=== PATIENT | female | born 1935 | race Caucasian/White ===

== ENCOUNTER → 2016-03-05 | Outpatient (CLI) | payer MEDICARE ==
[~2016-03-05] MED LIST: LVT.05T PO; PANT20TA2 PO; PRAV20TA PO; SCR1T1 PO
--- OUTSIDE RECORDS SUMMARY | 2016-03-05 10:30 | XMS REPORT | Continuity of Care Document ---
Author Author [facility] Organization [facility] Address Unknown Phone Unavailable Care Team Providers Care Customer Complaint Clerk Name Role Phone PRINCESS CARSON MD PCP Insurance Providers Payer Name Policy Number Subscriber Name Relationship Wps Medicare [id number] Jamee Osorio 18 Self / Same As Patient Blue [employer] [facility] Supp [id number] Jamee Osorio 18 Self / Same As Patient Advance Directives Directive Response Recorded Date/Time Advance Directives No 11/02/13 8:39am Health Care Power of Change Over No 11/02/13 8:39am Organ Donor No 11/02/13 8:39am Resuscitation Status Full Code 11/02/13 8:39am Problems No known problems or medical conditions. Medications Medication Dose Route Sig Days/Qty Instructions Order Date Discontinued Date Status Pravastatin Sodium 20 Mg PO DAILY 11/02/13 Active Levothyroxine Sodium (Levothroid) 1 Each PO DAILY 11/02/13 Active Pantoprazole Sodium 40 Mg PO DAILY 90 Qty 11/02/13 Active Sucralfate 1 Gm PO FOUR TIMES DAILY 14 Days 11/02/13 Active Social History Social History Problem Response Recorded Date/Time Smoking Status Never a Smoker 11/02/2013 8:47am Do you dip or chew tobacco? No 11/02/2013 8:47am Query Response Start Date Stop Date Smoking Status Never a Smoker Hospital Discharge Instructions No hospital discharge instructions. Plan of Care No plan of care. Functional Status No functional status results. Allergies, Adverse Reactions, Alerts Allergen Type Severity Reaction Status Last Updated No Known Drug Allergies Active 11/02/13 Immunizations No immunization records. Vital Signs Acute Vital Signs Vital Response Date/Time Temperature (Fahrenheit) 97.2 degrees F (97.6 - 99.5) Temperature (Calculated Celsius) 36.40805 degrees C (36.4 - 37.5) Temperature Source Tympanic Pulse Rate (adult) 66 bpm (60 - 90) Respiratory Rate 18 bpm (12 - 24) O2 Sat by Pulse Oximetry 98 % (88 - 100) Blood Pressure 187/82 mm Hg Pain Pain Intensity 0 Height (Feet) 5 feet Height (Inches) 2.00 inches Height (Calculated Centimeters) 157.461371 cm Weight (Pounds) 130 pounds Weight (Calculated Grams) 46779.009 gm Weight (Calculated Kilograms) 58.642777 kilograms Calculated BMI 23.77 Results No known relevant diagnostic tests, laboratory data and/or discharge summary. Procedures Procedure Status Date Provider(s) Esophagogastroduodenoscopy (EGD) with dilation completed 11/02/13 TONYA MOHAN MD Encounters Encounter Location Date/Time Registered Clinic [facility] 10/28/13 2:29pm
--- NOTE | 2016-03-05 11:44 | Diagnostic Imaging Report ---
PROCEDURE: MR imaging of the brain without contrast. TECHNIQUE: Multiplanar, multisequence MR imaging of the brain was performed without contrast. INDICATION: Memory loss. FINDINGS: There are no prior studies available for comparison. There is no mass, shift of the midline, or hemorrhage to suggest an acute intracranial abnormality. There is no abnormal signal arising from the brain on the diffusion series to indicate an area of acute ischemia either. The ventricles are not abnormally dilated. The FLAIR series does show focal and diffuse areas of increased signal in the periventricular white matter bilaterally. These findings are nonspecific but may be secondary to encephalomalacia from microvascular ischemia. There is cortical atrophy present. The degree of atrophy is consistent with the patient's age. The sella is not enlarged and the expected carotid flow voids are evident bilaterally. The orbits are symmetrical and within normal limits. The sinuses are generally clear. The seventh and eighth nerve complexes are unremarkable. IMPRESSION: 1. There is no evidence for an acute intracranial abnormality. There is no sign of a mass lesion either. 2. There are senescent changes including cortical atrophy and periventricular encephalomalacia. Dictated by: Dictated on workstation # [id number]
== END ==
LOC: RAD 10:27
PROVIDERS: ATTEND Nurse Practitioner Family
DX: R41.3 Other amnesia (principal)
CPT/HCPCS: 70551

== ENCOUNTER 2018-10-09 15:25 | Emergency (ER) | payer MEDICARE ==
[~2018-10-09] VITALS: Ht 162.6 cm; Wt 70.3 kg
[2018-10-09] MEDS ORDERED: ONDANSETRON 4 MG/2 ML (SDV) Z0FRAN IVP ONE (15:45)
--- NOTE | 2018-10-09 15:45 | ED General ---
General Chief Complaint: General Problems/Pain Stated Complaint: CHILLS,NAUSEA Source of Information: Patient Exam Limitations: No Limitations History of Present Illness Date Seen by Provider: Oct 09, 2018 Time Seen by Provider: 15:42 Initial Comments 83-year-old female who lives at home alone with family very close by comes in with reports of nausea and chills. The nausea has been ongoing for about the past week since starting Lexapro. Her dose of Aricept has been changed recently as well. The Lexapro has been held for the past 3 days due to the nausea that family suspected it was causing. Timing/Duration: 1 Week, Intermittent Severity: Moderate Associated Systoms: Nausea/Vomiting Allergies and Home Medications Allergies Coded Allergies: No Known Drug Allergies (Unverified , 11/02/13) Home Medications Levothyroxine Sodium 50 Mcg Tablet, 1 EACH PO DAILY, (Reported) Pantoprazole Sodium 20 Mg Tablet.dr, 40 MG PO DAILY Prescribed by: TONYA MOHAN on 11/02/13 1056 Pravastatin Sodium 20 Mg Tablet, 20 MG PO DAILY, (Reported) Sucralfate 1 Gm Tab, 1 GM PO QID Prescribed by: TONYA MOHAN on 11/02/13 1056 Patient Home Medication List Home Medication List Reviewed: Yes Review of Systems Review of Systems Constitutional: see HPI EENTM: see HPI Respiratory: no symptoms reported Cardiovascular: no symptoms reported Gastrointestinal: No abdominal pain; nausea Genitourinary: no symptoms reported Musculoskeletal: no symptoms reported Skin: no symptoms reported Psychiatric/Neurological: No Symptoms Reported Past Zudbvtn-Ugheky-Yiiknp Hx Patient Social History Alcohol Use: Denies Use Recreational Drug Use: No Smoking Status: Never a Smoker Recent Foreign Travel: No Contact w/Someone Who Travel: No Recent Hopitalizations: No Physical Abuse: No Sexual Abuse: No Mistreated: No Fear: No Past Medical History Surgeries: Yes Respiratory: No Cardiac: No Neurological: No Gastrointestinal: No Musculoskeletal: No Endocrine: Yes Physical Exam Vital Signs Vital Signs - First Documented 10/09/18 15:35 Temp 95.2 Pulse 67 Resp 20 B/P (MAP) 188/97 (127) Pulse Ox 98 O2 Delivery Room Air Capillary Refill : Height, Weight, BMI Height: 5'2.00" Weight: 130lbs. oz. 58.030783sw; BMI Method: General Appearance: No Apparent Distress, WD/WN, Other (alert and pleasant but disoriented -->her baseline) Eyes: Bilateral Eye Normal Inspection, Bilateral Eye PERRL, Bilateral Eye EOMI HEENT: PERRL/EOMI Neck: Full Range of Motion, Normal Inspection Respiratory: Normal Breath Sounds, No Accessory Muscle Use, No Respiratory Distress Cardiovascular: Regular Rate, Rhythm, Normal Peripheral Pulses Gastrointestinal: Non Tender, Soft Extremity: Normal Capillary Refill, Normal Inspection Neurologic/Psychiatric: Alert, Oriented x3 Skin: Normal Color, Warm/Dry Progress/Results/Core Measures Suspected Sepsis SIRS Temperature: Pulse: Respiratory Rate: Laboratory Tests 10/09/18 15:57: White Blood Count 9.6 Blood Pressure / Mean: Laboratory Tests 10/09/18 15:57: Creatinine 1.28, Platelet Count 420H, Total Bilirubin 0.5 Results/Orders Lab Results Laboratory Tests Test 10/09/18 15:51 10/09/18 15:57 Range/Units Urine Color YELLOW Urine Clarity CLEAR Urine pH 5 5-9 Urine Specific [place] 1.020 1.016-1.022 Urine Protein 3+ H NEGATIVE Urine Glucose (UA) NEGATIVE NEGATIVE Urine Ketones 2+ H NEGATIVE Urine Nitrite NEGATIVE NEGATIVE Urine Bilirubin NEGATIVE NEGATIVE Urine Urobilinogen NORMAL NORMAL MG/DL Urine Leukocyte Esterase NEGATIVE NEGATIVE Urine RBC (Auto) 2+ H NEGATIVE Urine RBC NONE /HPF Urine WBC RARE /HPF Urine Squamous Epithelial Cells 5-10 /HPF Urine Crystals NONE /LPF Urine Bacteria NEGATIVE /HPF Urine Casts PRESENT /LPF Urine Hyaline Casts 2-5 H /LPF Urine Mucus SMALL H /LPF Urine Culture Indicated NO White Blood Count 9.6 4.3-11.0 10^3/uL Red Blood Count 4.60 4.35-5.85 10^6/uL Hemoglobin 12.4 11.5-16.0 G/DL Hematocrit 38 35-52 % Mean Corpuscular Volume 82 80-99 FL Mean Corpuscular Hemoglobin 27 25-34 PG Mean Corpuscular Hemoglobin Concent 33 32-36 G/DL Red Cell Distribution Width 14.6 H 10.0-14.5 % Platelet Count 420 H 130-400 10^3/uL Mean Platelet Volume 9.8 7.4-10.4 FL Neutrophils (%) (Auto) 74 42-75 % Lymphocytes (%) (Auto) 15 12-44 % Monocytes (%) (Auto) 10 0-12 % Eosinophils (%) (Auto) 1 0-10 % Basophils (%) (Auto) 0 0-10 % Neutrophils # (Auto) 7.1 1.8-7.8 X 10^3 Lymphocytes # (Auto) 1.5 1.0-4.0 X 10^3 Monocytes # (Auto) 0.9 0.0-1.0 X 10^3 Eosinophils # (Auto) 0.1 0.0-0.3 10^3/uL Basophils # (Auto) 0.0 0.0-0.1 10^3/uL Sodium Level 135 135-145 MMOL/L Potassium Level 3.1 L 3.6-5.0 MMOL/L Chloride Level 98 98-107 MMOL/L Carbon Dioxide Level 23 21-32 MMOL/L Anion Gap 14 5-14 MMOL/L Blood Urea Nitrogen 20 H 7-18 MG/DL Creatinine 1.28 0.60-1.30 MG/DL Estimat Glomerular Filtration Rate 40 BUN/Creatinine Ratio 16 Glucose Level 129 H 70-105 MG/DL Calcium Level 9.0 8.5-10.1 MG/DL Corrected Calcium 8.9 8.5-10.1 MG/DL Total Bilirubin 0.5 0.1-1.0 MG/DL Aspartate Amino Transf (AST/SGOT) 16 5-34 U/L Alanine Aminotransferase (ALT/SGPT) 10 0-55 U/L Alkaline Phosphatase 56 40-136 U/L Total Protein 7.0 6.4-8.2 GM/DL Albumin 4.1 3.2-4.5 GM/DL My Orders Orders - DIANNA IGLESIAS APRN Cbc With Automated Diff (10/09/18 15:41) Comprehensive Metabolic Panel (10/09/18 15:41) Ua Culture If Indicated (10/09/18 15:41) Ed Iv/Invasive Line Start (10/09/18 15:41) Ondansetron Injection (Zofran Injectio (10/09/18 15:45) Medications Given in ED Current Medications Medications Dose Ordered Sig/Teja Route Start Time Stop Time Status Last Admin Dose Admin Ondansetron HCl 4 mg ONCE ONCE IVP 10/09/18 15:45 10/09/18 15:46 DC 10/09/18 15:59 4 MG Vital Signs/I&O 10/09/18 15:35 Temp 95.2 Pulse 67 Resp 20 B/P (MAP) 188/97 (127) Pulse Ox 98 O2 Delivery Room Air Capillary Refill : Departure Impression Primary Impression: Nausea Disposition: 01 HOME, SELF-CARE Condition: Stable Departure-Patient Inst. Decision time for Depature: 16:35 Referrals: PRINCESS CARSON MD (PCP/Family) Primary Care Physician Patient Instructions: Nausea and Vomiting, Adult Add. Discharge Instructions: 1. Her urinalysis shows no sign of infection, labs are otherwise unremarkable except for some slightly low potassium. Suspect that her nausea is from the Aricept. All discharge instructions reviewed with patient and/or family. Voiced understanding. Scripts Ondansetron (Ondansetron Odt) 8 Mg Tab.rapdis 8 MG PO Q8H PRN for NAUSEA/VOMITING, #14 TAB Prov: DIANNA IGLESIAS APRN 10/09/18 DIANNA IGLESIAS APRN Oct 09, 2018 15:45
[2018-10-09 15:57] LABS: BILIRUBIN,URINE NEGATIVE (NEGATIVE); CLARITY,URINE CLEAR; COLOR,URINE YELLOW; GLUCOSE, URINE (UA) NEGATIVE (NEGATIVE); KETONES,URINE 2+ (NEGATIVE); LEUKOCYTE ESTERASE ,URINE NEGATIVE (NEGATIVE); NITRITE,URINE NEGATIVE (NEGATIVE); PH,URINE 5 (5-9); PROTEIN,URINE 3+ (NEGATIVE); UROBILINOGEN,URINE NORMAL (NORMAL)
[2018-10-09 16:06] LABS: BACTERIA,URINE NEGATIVE /HPF; WBC,URINE RARE /HPF
[2018-10-09 16:09] LABS: BASOPHILS % (AUTO) 0 % (0-10); EOSINOPHILS # (AUTO) 0.1 10^3/uL (0.0-0.3); EOSINOPHILS % (AUTO) 1 % (0-10); HEMATOCRIT 38 % (35-52); HEMOGLOBIN 12.4 G/DL (11.5-16.0); LYMPHOCYTES # (AUTO) 1.5 X 10^3 (1.0-4.0); LYMPHOCYTES % (AUTO) 15 % (12-44); MEAN CORPUSCULAR HEMOGLOBIN 27 PG (25-34); MEAN CORPUSCULAR HGB CONC 33 G/DL (32-36); MEAN CORPUSCULAR VOLUME 82 FL (80-99); MEAN PLATELET VOLUME 9.8 FL (7.4-10.4); MONOCYTES # (AUTO) 0.9 X 10^3 (0.0-1.0); MONOCYTES % (AUTO) 10 % (0-12); NEUTROPHILS # (AUTO) 7.1 X 10^3 (1.8-7.8); NEUTROPHILS % (AUTO) 74 % (42-75); PLATELET COUNT 420 10^3/uL (130-400); RED CELL DISTRIBUTION WIDTH 14.6 % (10.0-14.5); WHITE BLOOD COUNT 9.6 10^3/uL (4.3-11.0)
[2018-10-09 16:24] LABS: ALBUMIN 4.1 GM/DL (3.2-4.5); BILIRUBIN,TOTAL 0.5 MG/DL (0.1-1.0); CREATININE SERUM 1.28 MG/DL (0.60-1.30); POTASSIUM 3.1 MMOL/L (3.6-5.0)
[2018-10-09] MEDS ORDERED: ONDA8TAB13 PO (16:37)
[2018-10-09] MEDS ORDERED: KCL 10 MEQ TAB (MICRO K) PO ONE (16:45)
[2018-10-09 16:53] VITALS: BP 183/78
== END 2018-10-09 16:53 | disposition home or self-care (01) ==
LOC: EDUNIT# 15:25 → ER 15:27
DX: R11.0 Nausea (principal)
CPT/HCPCS: 36415; 80053; 81000; 85025

== ENCOUNTER 2018-12-31 15:33 | Outpatient (RCR) | payer MEDICARE ==
[~2018-12-31 15:33] MED LIST changes: +ONDA8TAB13 PO
== END 2019-03-31 | disposition home or self-care (01) ==
LOC: LAB 15:33
PROVIDERS: ATTEND Family Medicine
DX: R19.7 Diarrhea, unspecified (principal)
CPT/HCPCS: 87324; 87449

== ENCOUNTER → 2019-07-20 | Outpatient (CLI) | payer MEDICARE ==
[~2019-07-20] MED LIST changes: +HOLD METFORMIN - RECEIVED CONTRAST 20 ML VIAL IV SCH; +IOHEXOL 350 MG/ML 100 ML (OMNIPAQUE 350) VIAL IV ONE; +NS 100 ML (IVPB) BAG IV ONE
--- NOTE | 2019-07-20 09:48 | Diagnostic Imaging Report ---
PROCEDURE: CT abdomen and pelvis with and without contrast. TECHNIQUE: Precontrast acquisitions were acquired through the abdomen and pelvis. Multiple contiguous axial images were obtained through the abdomen and pelvis after the administration of intravenous contrast. Auto Exposure Controls were utilized during the CT exam to meet ALARA standards for radiation dose reduction. INDICATION: Diarrhea for 2 months. No prior studies are available for comparison. Lung bases are clear. No discrete liver mass is detected. There appear to be small stones within the gallbladder. No biliary ductal dilatation is seen. The pancreas and spleen are unremarkable. No adrenal mass is detected. There is a cyst extending exophytically and laterally from the right kidney measuring 5.2 cm. Left kidney is unremarkable. There is no hydronephrosis. Aorta is calcified but not aneurysmal. No central retroperitoneal or mesenteric lymphadenopathy is detected. The small and large bowel loops are normal caliber. There is no obstruction. There is diverticulosis of the sigmoid but no evidence of diverticulitis. No definite bowel wall thickening or mass is detected. There is a very small fat-containing umbilical hernia. Uterus and bladder are unremarkable. There is no free fluid or fluid collection. No pelvic lymphadenopathy is seen. IMPRESSION: 1. Cholelithiasis. 2. Right renal cyst. 3. Uncomplicated diverticulosis. 4. No acute feature is identified. Dictated by: Dictated on workstation # [id number]
== END ==
LOC: RAD 08:07
PROVIDERS: ATTEND Family Medicine
DX: K57.30 Diverticulosis of large intestine without perforation or abscess without bleeding (principal); K80.20 Calculus of gallbladder without cholecystitis without obstruction; N28.1 Cyst of kidney, acquired; R19.7 Diarrhea, unspecified
CPT/HCPCS: 74178

== ENCOUNTER 2020-08-11 13:25 | Inpatient (IN) | payer MEDICARE ==
[~2020-08-11] VITALS: Ht 170 cm; Wt 68.8 kg
[~2020-08-11 13:25] MED LIST changes: -HOLD METFORMIN - RECEIVED CONTRAST 20 ML VIAL IV SCH; -IOHEXOL 350 MG/ML 100 ML (OMNIPAQUE 350) VIAL IV ONE; -NS 100 ML (IVPB) BAG IV ONE
[2020-08-11 14:00] LABS: BASOPHILS % (AUTO) 0 % (0-10); EOSINOPHILS % (AUTO) 0 % (0-10); HEMATOCRIT 40 % (35-52); HEMOGLOBIN 12.8 g/dL (11.5-16.0); LYMPHOCYTES # (AUTO) 0.1 10^3/uL (1.0-4.0); LYMPHOCYTES % (AUTO) 1 % (12-44); MEAN CORPUSCULAR HEMOGLOBIN 28 pg (25-34); MEAN CORPUSCULAR HGB CONC 32 g/dL (32-36); MEAN CORPUSCULAR VOLUME 87 fL (80-99); MONOCYTES # (AUTO) 0.8 10^3/uL (0.0-1.0); MONOCYTES % (AUTO) 4 % (0-12); NEUTROPHILS # (AUTO) 17.8 10^3/uL (1.8-7.8); NEUTROPHILS % (AUTO) 94 % (42-75); PLATELET COUNT 350 10^3/uL (130-400); WHITE BLOOD COUNT 18.8 10^3/uL (4.3-11.0)
--- NOTE | 2020-08-11 14:05 | ED General ---
General Chief Complaint: General Problems/Pain Stated Complaint: SHAKY/NOT WANTING TO EAT/DIZZY Source of Information: Patient, Family Exam Limitations: Other (dementia) (DIANNA IGLESIAS APRN) History of Present Illness Date Seen by Provider: Aug 11, 2020 Time Seen by Provider: 13:40 Initial Comments To ER by daughter with general weakness, shaking more than usual, nausea poor intake for the past few days. Patient is severely demented Timing/Duration: 3-4 Days Severity: Moderate Associated Systoms: Nausea/Vomiting (DIANNA IGLESIAS APRN) Allergies and Home Medications Allergies Coded Allergies: No Known Drug Allergies (Unverified , 11/02/13) Home Medications Levothyroxine Sodium 50 Mcg Tablet, 1 EACH PO DAILY, (Reported) Ondansetron 8 Mg Tab.rapdis, 8 MG PO Q8H PRN for NAUSEA/VOMITING Prescribed by: DIANNA IGLESIAS on 10/09/18 1637 Pantoprazole Sodium 20 Mg Tablet.dr, 40 MG PO DAILY Prescribed by: TONYA MOHAN on 11/02/13 1056 Pravastatin Sodium 20 Mg Tablet, 20 MG PO DAILY, (Reported) Sucralfate 1 Gm Tab, 1 GM PO QID Prescribed by: TONYA MOHAN on 11/02/13 1056 Patient Home Medication List Home Medication List Reviewed: Yes (DIANNA IGLESIAS APRN) Review of Systems Review of Systems Constitutional: see HPI EENTM: see HPI Respiratory: see HPI Cardiovascular: no symptoms reported Genitourinary: no symptoms reported Musculoskeletal: no symptoms reported Skin: no symptoms reported Psychiatric/Neurological: No Symptoms Reported Hematologic/Lymphatic: No Symptoms Reported (DIANNA IGLESIAS APRN) Past Jeyqwbj-Ojpzik-Zlqdil Hx Patient Social History Tobacco Use?: No Substance use?: No Pt feels they are or have been: No (DIANNA IGLESIAS APRN) Past Medical History Surgeries: Yes Respiratory: No Cardiac: No Neurological: No Gastrointestinal: No Musculoskeletal: No Endocrine: Yes (DIANNA IGLESIAS APRN) Physical Exam Vital Signs Vital Signs - First Documented 08/11/20 13:50 Temp 36.4 Pulse 85 Resp 18 B/P (MAP) 157/68 (97) Pulse Ox 97 O2 Delivery Room Air (ALIE PEGUERO MD) Vital Signs Capillary Refill : (DIANNA IGLESIAS APRN) Height, Weight, BMI Height: 5'4.00" Weight: 155lbs. oz. 70.511623ot; BMI Method:Estimated General Appearance: No Apparent Distress, WD/WN Eyes: Bilateral Eye Normal Inspection, Bilateral Eye PERRL, Bilateral Eye EOMI Neck: Full Range of Motion, Normal Inspection Respiratory: No Accessory Muscle Use, No Respiratory Distress Cardiovascular: Regular Rate, Rhythm, Normal Peripheral Pulses Gastrointestinal: Normal Bowel Sounds, Non Tender, Soft Neurologic/Psychiatric: Alert, Other (Pleasant, alert, quite obviously demented.) Skin: Normal Color, Warm/Dry (DIANNA IGLESIAS APRN) Focused Exam Lactic Acid Level Laboratory Tests Test 08/11/20 15:44 Lactic Acid Level 4.28 MMOL/L (0.50-2.00) *H (ALIE PEGUERO MD) Progress/Results/Core Measures Suspected Sepsis SIRS Temperature: Pulse: Respiratory Rate: Laboratory Tests 08/11/20 13:51: White Blood Count 18.8H Blood Pressure / Mean: 08/11/20 15:44: Lactic Acid Level 4.28*H Laboratory Tests 08/11/20 13:51: Creatinine 1.35H, Platelet Count 350, Total Bilirubin 2.7H (DIANNA IGLESIAS APRN) Results/Orders Lab Results Laboratory Tests Test 08/11/20 13:51 08/11/20 15:21 08/11/20 15:44 Range/Units White Blood Count 18.8 H 4.3-11.0 10^3/uL Red Blood Count 4.56 3.80-5.11 10^6/uL Hemoglobin 12.8 11.5-16.0 g/dL Hematocrit 40 35-52 % Mean Corpuscular Volume 87 80-99 fL Mean Corpuscular Hemoglobin 28 25-34 pg Mean Corpuscular Hemoglobin Concent 32 32-36 g/dL Red Cell Distribution Width 14.4 10.0-14.5 % Platelet Count 350 130-400 10^3/uL Mean Platelet Volume 10.0 9.0-12.2 fL Immature Granulocyte % (Auto) 0 % Neutrophils (%) (Auto) 94 H 42-75 % Lymphocytes (%) (Auto) 1 L 12-44 % Monocytes (%) (Auto) 4 0-12 % Eosinophils (%) (Auto) 0 0-10 % Basophils (%) (Auto) 0 0-10 % Neutrophils # (Auto) 17.8 H 1.8-7.8 10^3/uL Lymphocytes # (Auto) 0.1 L 1.0-4.0 10^3/uL Monocytes # (Auto) 0.8 0.0-1.0 10^3/uL Eosinophils # (Auto) 0.0 0.0-0.3 10^3/uL Basophils # (Auto) 0.0 0.0-0.1 10^3/uL Immature Granulocyte # (Auto) 0.1 0.0-0.1 10^3/uL Neutrophils % (Manual) 94 % Lymphocytes % (Manual) 1 % Monocytes % (Manual) 5 % Hypersegmented Neutrophils MODERATE Sodium Level 139 135-145 MMOL/L Potassium Level 3.8 3.6-5.0 MMOL/L Chloride Level 103 98-107 MMOL/L Carbon Dioxide Level 21 21-32 MMOL/L Anion Gap 15 H 5-14 MMOL/L Blood Urea Nitrogen 11 7-18 MG/DL Creatinine 1.35 H 0.60-1.30 MG/DL Estimat Glomerular Filtration Rate 37 BUN/Creatinine Ratio 8 Glucose Level 207 H 70-105 MG/DL Calcium Level 8.8 8.5-10.1 MG/DL Corrected Calcium 8.9 8.5-10.1 MG/DL Magnesium Level 1.9 1.6-2.4 MG/DL Total Bilirubin 2.7 H 0.1-1.0 MG/DL Aspartate Amino Transf (AST/SGOT) 193 H 5-34 U/L Alanine Aminotransferase (ALT/SGPT) 139 H 0-55 U/L Alkaline Phosphatase 76 40-136 U/L Troponin I < 0.028 <0.028 NG/ML B-Type Natriuretic Peptide 251.3 H <100.0 PG/ML Total Protein 6.8 6.4-8.2 GM/DL Albumin 3.9 3.2-4.5 GM/DL Lipase 57 8-78 U/L Thyroid Stimulating Hormone (TSH) 0.78 0.35-4.94 UIU/ML Free Thyroxine 1.37 0.70-1.48 NG/DL Urine Color YELLOW Urine Clarity CLEAR Urine pH 7.0 5-9 Urine Specific [place] 1.015 L 1.016-1.022 Urine Protein TRACE H NEGATIVE Urine Glucose (UA) NEGATIVE NEGATIVE Urine Ketones NEGATIVE NEGATIVE Urine Nitrite NEGATIVE NEGATIVE Urine Bilirubin NEGATIVE NEGATIVE Urine Urobilinogen 4.0 < = 1.0 MG/DL Urine Leukocyte Esterase NEGATIVE NEGATIVE Urine RBC (Auto) TRACE-I NEGATIVE Urine RBC NONE /HPF Urine WBC 2-5 /HPF Urine Squamous Epithelial Cells RARE /HPF Urine Crystals NONE /LPF Urine Bacteria FEW H /HPF Urine Casts NONE /LPF Urine Mucus NEGATIVE /LPF Urine Culture Indicated NO Lactic Acid Level 4.28 *H 0.50-2.00 MMOL/L (ALIE PEGUERO MD) Vital Signs/I&O 08/11/20 08/11/20 08/11/20 13:50 13:54 16:21 Temp 36.4 36.4 36.4 Pulse 85 85 85 Resp 18 18 18 B/P (MAP) 157/68 (97) 157/68 (97) 125/76 Pulse Ox 97 97 97 O2 Delivery Room Air 08/12/20 00:00 Intake Total 1000 ml Balance 1000 ml (ALIE PEGUERO MD) Vital Signs/I&O Capillary Refill : (DIANNA IGLESIAS APRN) ECG Initial ECG Impression Date: Aug 11, 2020 Initial ECG Impression Time: 15:26 Initial ECG Rate: 74 Initial ECG Rhythm: Normal Sinus Initial ECG Intervals: Normal (DIANNA IGLESIAS APRN) Diagnostic Imaging Diagonstic Imaging: Xray Plain Films/CT/US/NM/MRI: chest Comments NAME: [facility] REC#: [id number] PT STATUS: REG ER : 1935 PHYSICIAN: DIANNA IGLESIAS APRN ADMIT DATE: 08/11/20/ER Draft Date of Exam:08/11/20 CHEST 1 VIEW, AP/PA ONLY INDICATION: Weakness. EXAMINATION: Portable erect AP chest at 2:58 p.m. COMPARISON: There are no prior studies available for comparison. FINDINGS: This exam is less than optimal as the study was taken in shallow inspiration. Allowing for this technical factor the heart size is at the upper limits of normal. The lungs are generally clear with there may be a very small amount of atelectasis/infiltrate in each lung base. There is no evidence for overt failure or for confluent pneumonia. The mediastinum is not widened. The osseous structures are intact. IMPRESSION: 1. There is a question of mild bibasilar atelectasis/infiltrate. Clinical follow-up is recommended. 2. There is no acute cardiopulmonary abnormality noted otherwise. Dictated on workstation # [id number] Dict: 08/11/20 1510 Trans: 08/11/20 1514 PJE [id number] Interpreted by: ALMITA DICKERSON MD Electronically signed by: NAME: [facility] REC#: [id number] PT STATUS: REG ER : 1935 PHYSICIAN: DIANNA IGLESIAS APRN ADMIT DATE: 08/11/20/ER Draft Date of Exam:08/11/20 CT ABDOMEN/PELVIS WO Procedure: CT abdomen and pelvis without contrast. Technique: Multiple contiguous axial images were obtained through the abdomen and pelvis without the use of intravenous contrast. Auto Exposure Controls were utilized during the CT exam to meet ALARA standards for radiation dose reduction. Indication: Abdominal pain with nausea and leukocytosis, abnormal liver function test. Comparison: 07/20/2019. Discussion: Atelectasis noted within the lung bases. Normal heart size. No pleural or pericardial fluid. The gallbladder is distended and contains small stones. The liver, pancreas, stomach, spleen and adrenal glands are unremarkable. Small hiatal hernia is stable. Prominent cyst along the right kidney is stable. No renal stone or hydronephrosis. Aorta is normal in caliber. Small fat-containing periumbilical hernia is again noted. No evidence for appendicitis. Diverticulosis with no secondary evidence for diverticulitis. Urinary bladder is unremarkable, as is the uterus. The aorta is normal in caliber. No ascites or adenopathy. No acute osseous abnormality. Degenerative disease noted throughout the spine. Impression: 1. Cholelithiasis with mild gallbladder distention. 2. Small hiatal hernia. 3. Diverticulosis. Dictated on workstation # [id number] Dict: 08/11/20 1513 Trans: 08/11/20 1536 PJE [id number] Interpreted by: CRISSY MORRISON MD Electronically signed by: (DIANNA IGLESIAS APRN) Departure Communication (Admissions) [id number]-[id number] with Dr. Manuel who has been here to see the patient. Offered surgery versus conservative management with antibiotics. Patient's daughter at the bedside would prefer the more conservative route. As such we will admit to hospitalist service for IV antibiotics. 2 L fluid bolus done, IV antibiotics ordered, blood cultures obtained, capillary refill is brisk, skin color is nor mal. Blood pressure 125/55 heart rate 77. Patient's daughter believes her to be a DO NOT RESUSCITATE status but states that her sister, the patient's other daughter, has that paperwork so she will try to obtain that. I spoke with Dr. John who is on-call for Dr. Carson, we will admit. (DIANNA ILGESIAS APRN) Impression Primary Impression: Cholecystitis Disposition: ADMITTED INPATIENT Condition: Stable Admissions Decision to Admit Reason: Admit from ER (General) Decision to Admit/Date: Aug 11, 2020 Time/Decision to Admit Time: 16:54 (DIANNA IGLESIAS APRN) Departure-Patient Inst. Referrals: PRINCESS CARSON MD (PCP) Primary Care Physician ATTENDING PHYSICIAN NOTE: I was physically present as attending physician in the emergency department during the care of this patient, but I was not directly involved in the decision making or delivery of care for this patient. (ALIE PEGUERO MD) DIANNA IGLESIAS APRN Aug 11, 2020 14:05 ALIE PEGUERO MD Aug 12, 2020 06:32
[2020-08-11 14:11] LABS: ALBUMIN 3.9 GM/DL (3.2-4.5); CHLORIDE 103 MMOL/L (98-107); POTASSIUM 3.8 MMOL/L (3.6-5.0); SODIUM 139 MMOL/L (135-145)
[2020-08-11 14:13] LABS: CALCIUM 8.8 MG/DL (8.5-10.1)
[2020-08-11 14:14] LABS: GLUCOSE 207 MG/DL (70-105); TOTAL PROTEIN 6.8 GM/DL (6.4-8.2)
[2020-08-11 14:15] LABS: CARBON DIOXIDE 21 MMOL/L (21-32)
[2020-08-11 14:16] LABS: BILIRUBIN,TOTAL 2.7 MG/DL (0.1-1.0)
[2020-08-11 14:17] LABS: ALKALINE PHOSPHATASE 76 U/L (40-136); CREATININE SERUM 1.35 MG/DL (0.60-1.30); GFR ESTIMATED 37
[2020-08-11 14:18] LABS: BUN/CREATININE RATIO 8
[2020-08-11 14:20] LABS: ALANINE AMINOTRANSFERASE 139 U/L (0-55)
[2020-08-11 14:21] LABS: MAGNESIUM 1.9 MG/DL (1.6-2.4)
[2020-08-11] MEDS ORDERED: LACTATED RINGERS 1,000 ML IV SCH ×2 (14:30→17:00)
[2020-08-11] MEDS ORDERED: ONDANSETRON 4 MG/2 ML (SDV) Z0FRAN IVP ONE (14:30)
[2020-08-11 14:43] LABS: FREE T4 (FREE THYROXINE) 1.37 NG/DL (0.70-1.48)
--- NOTE | 2020-08-11 15:15 | Diagnostic Imaging Report ---
INDICATION: Weakness. EXAMINATION: Portable erect AP chest at 2:58 p.m. COMPARISON: There are no prior studies available for comparison. FINDINGS: This exam is less than optimal as the study was taken in shallow inspiration. Allowing for this technical factor the heart size is at the upper limits of normal. The lungs are generally clear with there may be a very small amount of atelectasis/infiltrate in each lung base. There is no evidence for overt failure or for confluent pneumonia. The mediastinum is not widened. The osseous structures are intact. IMPRESSION: 1. There is a question of mild bibasilar atelectasis/infiltrate. Clinical follow-up is recommended. 2. There is no acute cardiopulmonary abnormality noted otherwise. Dictated by: Dictated on workstation # [id number]
[2020-08-11 15:28] LABS: BILIRUBIN,URINE NEGATIVE (NEGATIVE); CLARITY,URINE CLEAR; COLOR,URINE YELLOW; GLUCOSE, URINE (UA) NEGATIVE (NEGATIVE); KETONES,URINE NEGATIVE (NEGATIVE); LEUKOCYTE ESTERASE ,URINE NEGATIVE (NEGATIVE); NITRITE,URINE NEGATIVE (NEGATIVE); PROTEIN,URINE TRACE (NEGATIVE)
--- NOTE | 2020-08-11 15:37 | Diagnostic Imaging Report ---
Procedure: CT abdomen and pelvis without contrast. Technique: Multiple contiguous axial images were obtained through the abdomen and pelvis without the use of intravenous contrast. Auto Exposure Controls were utilized during the CT exam to meet ALARA standards for radiation dose reduction. Indication: Abdominal pain with nausea and leukocytosis, abnormal liver function test. Comparison: 07/20/2019. Discussion: Atelectasis noted within the lung bases. Normal heart size. No pleural or pericardial fluid. The gallbladder is distended and contains small stones. The liver, pancreas, stomach, spleen and adrenal glands are unremarkable. Small hiatal hernia is stable. Prominent cyst along the right kidney is stable. No renal stone or hydronephrosis. Aorta is normal in caliber. Small fat-containing periumbilical hernia is again noted. No evidence for appendicitis. Diverticulosis with no secondary evidence for diverticulitis. Urinary bladder is unremarkable, as is the uterus. The aorta is normal in caliber. No ascites or adenopathy. No acute osseous abnormality. Degenerative disease noted throughout the spine. Impression: 1. Cholelithiasis with mild gallbladder distention. 2. Small hiatal hernia. 3. Diverticulosis. Dictated by: Dictated on workstation # [id number]
[2020-08-11] MEDS ORDERED: PIPERACILLIN SODIUM/TAZOBACTAM 4.5 GM in NS (IVPB) 100 ML IV ONE (16:15)
[2020-08-11 16:16] LABS: HYPERSEGMENTED NEUT MODERATE; LYMPHOCYTES % (MANUAL) 1 %; MONOCYTES % (MANUAL) 5 %; NEUTROPHILS % (MANUAL) 94 %
[2020-08-11 16:21] LABS: BACTERIA,URINE FEW /HPF
[2020-08-11 16:22] LABS: SQUAMOUS EPITHELIAL CELL,UR RARE /HPF
--- NOTE | 2020-08-11 16:50 | Consultation - Surgery ---
History of Present Illness History of Present Illness Patient Consulted On(katie/time) 08/11/20 16:39 Time Seen by Provider: 16:21 History of Present Illness Surgery asked to consult regarding Cholelithiasis. HPI per ED: To ER by daughter with general weakness, shaking more than usual, nausea poor intake for the past few days. Patient is severely demented Timing/Duration: 3-4 Days Severity: Moderate Associated Systoms: Nausea/Vomiting When I spoke to the patient and her daughter; patient was unable to answer questions she kept saying "I do not know ask my daughter". Daughter states that patient is demented and she has been away unable to eat today and the daughter feels like over the past couple days something has been "off". The dementia is nothing new and patient and the daughter states that she feels like overall her health has also been declining recently. When asked patient denies any abdominal pain and cannot tell me why she has no appetite, again she says asked my daughter I do not know. Allergies and Home Medications Allergies Coded Allergies: No Known Drug Allergies (Unverified , 11/02/13) Home Medications Levothyroxine Sodium 50 Mcg Tablet, 1 EACH PO DAILY, (Reported) Ondansetron 8 Mg Tab.rapdis, 8 MG PO Q8H PRN for NAUSEA/VOMITING Prescribed by: DIANNA IGLESIAS on 10/09/18 1637 Pantoprazole Sodium 20 Mg Tablet.dr, 40 MG PO DAILY Prescribed by: TONYA MOHAN on 11/02/13 1056 Pravastatin Sodium 20 Mg Tablet, 20 MG PO DAILY, (Reported) Sucralfate 1 Gm Tab, 1 GM PO QID Prescribed by: TONYA MOHAN on 11/02/13 1056 Patient Home Medication List Home Medication List Reviewed: Yes Past Jukujoj-Dvbtcr-Izbzfz Hx Patient Social History Smoking Status: Never a Smoker Recent Hopitalizations: No Alcohol Use?: No Surgeries History of Surgeries: Yes Respiratory History of Respiratory Disorde: No Cardiovascular History of Cardiac Disorders: No Neurological History of Neurological Disord: No Gastrointestinal History of Gastrointestinal Di: No Musculoskeletal History of Musculoskeletal Dis: No Endocrine History of Endocrine Disorders: Yes Family Medical History Significant Family History: Diabetes (daughter denies she has DM) Review of Systems-General ROS-Unable to Obtain: Pt cannot answer any questions Physical Exam-General Problems Physical Exam Vital Signs Vital Signs - First Documented 08/11/20 13:50 Temp 36.4 Pulse 85 Resp 18 B/P (MAP) 157/68 (97) Pulse Ox 97 O2 Delivery Room Air Capillary Refill : Less Than 3 Seconds General Appearance: WD/WN, no apparent distress, obese Eyes: Bilateral Eye PERRL, Bilateral Eye EOMI HEENT: pharynx normal; No scleral icterus (R), No scleral icterus (L) Neck: non-tender, supple Respiratory: lungs clear, normal breath sounds, no respiratory distress, no accessory muscle use Cardiovascular: regular rate, rhythm Gastrointestinal: non tender, soft, no organomegaly, hernia (umbilical) Back: no CVA tenderness, no vertebral tenderness Extremities: no pedal edema, no calf tenderness Neurologic/Psychiatric: electroplater automatic II-XII nml as tested, alert, disoriented x 3 Skin: normal color, warm/dry Lymphatic: no adenopathy (neck, axilla or groin) Data Review Labs Laboratory Tests 08/11/20 13:51: White Blood Count 18.8H, Red Blood Count 4.56, Hemoglobin 12.8, Hematocrit 40, Mean Corpuscular Volume 87, Mean Corpuscular Hemoglobin 28, Mean Corpuscular Hemoglobin Concent 32, Red Cell Distribution Width 14.4, Platelet Count 350, Me an Platelet Volume 10.0, Immature Granulocyte % (Auto) 0, Neutrophils (%) (Auto) 94H, Lymphocytes (%) (Auto) 1L, Monocytes (%) (Auto) 4, Eosinophils (%) (Auto) 0, Basophils (%) (Auto) 0, Neutrophils # (Auto) 17.8H, Lymphocytes # (Auto) 0.1L , Monocytes # (Auto) 0.8, Eosinophils # (Auto) 0.0, Basophils # (Auto) 0.0, Immature Granulocyte # (Auto) 0.1, Neutrophils % (Manual) 94, Lymphocytes % (Manual) 1, Monocytes % (Manual) 5, Hypersegmented Neutrophils MODERATE, Sodium Level 139, Potassium Level 3.8, Chloride Level 103, Carbon Dioxide Level 21, Anion Gap 15H, Blood Urea Nitrogen 11, Creatinine 1.35H, Estimat Glomerular Filtration Rate 37, BUN/Creatinine Ratio 8, Glucose Level 207H, Calcium Level 8.8, Corrected Calcium 8.9, Magnesium Level 1.9, Total Bilirubin 2.7H, Aspartate Amino Transf (AST/SGOT) 193H, Alanine Aminotransferase (ALT/SGPT) 139H, Alkaline Phosphatase 76, Troponin I < 0.028, B-Type Natriuretic Peptide 251.3H, Total Protein 6.8, Albumin 3.9, Lipase 57, Thyroid Stimulating Hormone (TSH) 0.78, Free Thyroxine 1.37 08/11/20 15:21: Urine Color YELLOW, Urine Clarity CLEAR, Urine pH 7.0, Urine Specific [place] 1.015L, Urine Protein TRACEH, Urine Glucose (UA) NEGATIVE, Urine Ketones NEGATIVE, Urine Nitrite NEGATIVE, Urine Bilirubin NEGATIVE, Urine Urobilinogen 4.0, Urine Leukocyte Esterase NEGATIVE, Urine RBC (Auto) TRACE-I, Urine RBC NONE, Urine WBC 2-5, Urine Squamous Epithelial Cells RARE, Urine Crystals NONE, Urine Bacteria FEWH, Urine Casts NONE, Urine Mucus NEGATIVE, Urine Culture Indicated NO 08/11/20 15:44: Lactic Acid Level 4.28*H Radiology Date of Exam:08/11/20 CT ABDOMEN/PELVIS WO Procedure: CT abdomen and pelvis without contrast. Technique: Multiple contiguous axial images were obtained through the abdomen and pelvis without the use of intravenous contrast. Auto Exposure Controls were utilized during the CT exam to meet ALARA standards for radiation dose reduction. Indication: Abdominal pain with nausea and leukocytosis, abnormal liver function test. Comparison: 07/20/2019. Discussion: Atelectasis noted within the lung bases. Normal heart size. No pleural or pericardial fluid. The gallbladder is distended and contains small stones. The liver, pancreas, stomach, spleen and adrenal glands are unremarkable. Small hiatal hernia is stable. Prominent cyst along the right kidney is stable. No renal stone or hydronephrosis. Aorta is normal in caliber. Small fat-containing periumbilical hernia is again noted. No evidence for appendicitis. Diverticulosis with no secondary evidence for diverticulitis. Urinary bladder is unremarkable, as is the uterus. The aorta is normal in caliber. No ascites or adenopathy. No acute osseous abnormality. Degenerative disease noted throughout the spine. Impression: 1. Cholelithiasis with mild gallbladder distention. 2. Small hiatal hernia. 3. Diverticulosis. Dictated by: Dictated on workstation # [id number] Dict: 08/11/20 1513 Trans: 08/11/20 1633 [facility] [id number] Interpreted by: CRISSY MORRISON MD Electronically signed by: CRISSY MORRISON MD 08/11/20 2821 Assessment/Plan Assessment/Plan Assessment/Plan Cholelithiasis Decreased appetite Elevated WBC Dementia Patient has some cholelithiasis on CAT scan I reviewed this myself and then went over the radiology reading. However I do not see any inflammation no wall thickening no pericholecystic fluid no signs of acute cholecystitis at this time. She does have a elevated white count at 18,700 and her bilirubin is also elevated at 2.7. Her urinalysis came back as normal, no bacteria and no reason for culture. When I pushed on her belly patient had no pain in any of the quadrants and I was pushing very deeply in the right upper quadrant. I think even with her being demented if she had an acute cholecystitis she would have pain in this area. Cholecystitis is still the most likely reason for her elevated WBC; especially in light of elevated bilirubin. At this point though because of her age and because we are not sure how much this will help her; I recommended to the daughter that we watch, give her IV fluids, IV antibiotics, manage her pain as needed and recheck labs in the morning. I did give the daughter the option of doing gallbladder surgery today and went over risk and complications not limited to pain, bleeding, infection, scar and damage to bowel or bile ducts. I also told her daughter that we could do this later tonight or even tomorrow; if she gets worse or we can discuss again if nothing has changed. The daughter agreed with the conservative management and we will admit her to medicine and watch her overnight. SYLVIA PEPPER DO Aug 11, 2020 16:50
[2020-08-11 18:17] VITALS: BP 137/75
[2020-08-11 20:00] VITALS: BP 188/80
[2020-08-11] MEDS ORDERED: fentaNYL INJ 100 MCG/2 ML AMP IVP PRN (20:15)
[2020-08-11] MEDS ORDERED: ONDANSETRON 4 MG/2 ML (SDV) Z0FRAN IVP PRN (20:15)
[2020-08-11] MEDS: LACTATED RINGERS 1,000 ML IV SCH (20:53)
[2020-08-11] MEDS: inSUlin ASPART (NovoLOG) 1 UNIT/0.01 ML (CHARGE PER UNIT) SC SCH (21:38)
[2020-08-11] MEDS: PIPERACILLIN/TAZO 4.5 GM/NS 100 ML IV SCH ×2 (21:54)
[2020-08-12] VITALS (8 sets, daily range): BP systolic 149–189; BP diastolic 74–109
[2020-08-12] MEDS: LACTATED RINGERS 1,000 ML IV SCH ×3 (03:54→20:52)
[2020-08-12 04:22] LABS: BASOPHILS % (AUTO) 0 % (0-10); EOSINOPHILS % (AUTO) 0 % (0-10); HEMATOCRIT 33 % (35-52); HEMOGLOBIN 10.4 g/dL (11.5-16.0); LYMPHOCYTES # (AUTO) 0.6 10^3/uL (1.0-4.0); LYMPHOCYTES % (AUTO) 5 % (12-44); MEAN CORPUSCULAR HEMOGLOBIN 28 pg (25-34); MEAN CORPUSCULAR HGB CONC 32 g/dL (32-36); MEAN CORPUSCULAR VOLUME 88 fL (80-99); MEAN PLATELET VOLUME 10.2 fL (9.0-12.2); MONOCYTES # (AUTO) 0.8 10^3/uL (0.0-1.0); MONOCYTES % (AUTO) 7 % (0-12); NEUTROPHILS % (AUTO) 88 % (42-75); PLATELET COUNT 292 10^3/uL (130-400); WHITE BLOOD COUNT 12.6 10^3/uL (4.3-11.0)
[2020-08-12 04:29] LABS: POTASSIUM 3.6 MMOL/L (3.6-5.0)
[2020-08-12 04:31] LABS: TOTAL PROTEIN 5.2 GM/DL (6.4-8.2)
[2020-08-12 04:33] LABS: BILIRUBIN,TOTAL 3.9 MG/DL (0.1-1.0)
[2020-08-12 04:35] LABS: CREATININE SERUM 1.16 MG/DL (0.60-1.30)
[2020-08-12] MEDS: inSUlin ASPART (NovoLOG) 1 UNIT/0.01 ML (CHARGE PER UNIT) SC SCH ×4 (05:52→20:34)
[2020-08-12] MEDS: PIPERACILLIN/TAZO 4.5 GM/NS 100 ML IV SCH ×6 (06:25→20:52)
[2020-08-12] MEDS ORDERED: lisINopril 20 MG (PRINIVIL) TABLET PO NR (09:15)
[2020-08-12] MEDS ORDERED: MEMANTINE 5 MG (NAMENDA) TABLET PO SCH (09:15)
--- NOTE | 2020-08-12 09:19 | History & Physical ---
History of Present Illness History of Present Illness Reason for visit/HPI This is a 85 year old female patient of Dr. Allen'guadalupe with severe dementia. She was noted to be shakey and possibly dizzy with poor appetite by her daughter so she was brought to the emergency room where she was found to be septic with apparent acute cholecystitis. Surgery was consulted and the patient had no pain on exam. Surgery vs conservative management was offered. Due to her advanced age and severe dementia, it was decided to proceed with conservative management with IVFs, gut rest, IV antibiotics and monitor labs and any development of pain. Date of Admission Aug 11, 2020 at 16:48 Date Seen by a Provider: Aug 12, 2020 Time Seen by a Provider: 09:14 I consulted on this patient on 08/12/20 09:13 Attending Physician Anthony John DO Admitting Physician Izabel Allen MD Consult Allergies and Home Medications Allergies Coded Allergies: No Known Drug Allergies (Unverified , 11/02/13) Home Medications Levothyroxine Sodium 50 Mcg Tablet, 1 EACH PO DAILY, (Reported) Ondansetron 8 Mg Tab.rapdis, 8 MG PO Q8H PRN for NAUSEA/VOMITING Prescribed by: DIANNA IGLESIAS on 10/09/18 1637 Pantoprazole Sodium 20 Mg Tablet.dr, 40 MG PO DAILY Prescribed by: TONYA MOHAN on 11/02/13 1056 Pravastatin Sodium 20 Mg Tablet, 20 MG PO DAILY, (Reported) Sucralfate 1 Gm Tab, 1 GM PO QID Prescribed by: TONYA MOHAN on 11/02/13 1056 Patient Home Medication List Home Medication List Reviewed: Yes Past Qjfmycz-Zqhvly-Athcqv Hx Past Med/Social Hx: Reviewed Nursing Past Med/Soc Hx Patient Social History Smoking Status: Never a Smoker Recent Foreign Travel: No Contact w/other who traveled: No Recent Hopitalizations: No Recent Infectious Disease Expo: No Family History Diabetes (daughter denies she has DM) Review of Systems Constitutional: weakness EENTM: No see HPI, No no symptoms reported, No ear discharge, No hearing loss, No ear pain, No blurred vision, No double vision, No eye pain, No tearing, No vision loss, No dental problems, No hoarseness, No mouth pain, No mouth swelling, No epistaxis, No nose congestion, No nose pain, No throat pain, No throat swelling, No other Respiratory: No no symptoms reported, No see HPI, No cough, No dyspnea on exertion, No hemoptysis, No orthopnea, No phlegm, No short of breath, No stridor, No wheezing, No other Cardiovascular: No no symptoms reported, No see HPI, No chest pain, No edema, No Hx of Intervention, No palpitations, No syncope, No vascular heart diseas, No other Gastrointestinal: loss of appetite Genitourinary: No no symptoms reported, No see HPI, No decreased output, No discharge, No dysuria, No frequency, No hematuria, No hesitancy, No incontinence, No nocturia, No pain, No other Musculoskeletal: No no symptoms reported, No see HPI, No back pain, No gout, No joint pain, No joint swelling, No muscle pain, No muscle stiffness, No muscle cramps, No muscle twitching, No muscle weakness, No neck pain, No other Psychiatric/Neurological: Pre-Existing Deficit (dementia), Other (dizziness) Physical Exam Vital Signs Vital Signs - First Documented 08/11/20 13:50 Temp 36.4 Pulse 85 Resp 18 B/P (MAP) 157/68 (97) Pulse Ox 97 O2 Delivery Room Air Capillary Refill : Less Than 3 Seconds Height, Weight, BMI Height: 5'4.00" Weight: 155lbs. oz. 70.099037gc; 23.80 BMI Method:Estimated General Appearance: No Apparent Distress HEENT: Normal ENT Inspection Neck: Supple Respiratory: Lungs Clear Cardiovascular: Regular Rate, Rhythm Gastrointestinal: Normal Bowel Sounds, Non Tender, Soft Rectal: Deferred Back: No CVA Tenderness Extremity: Non Tender, No Calf Tenderness, No Pedal Edema Neurologic/Psychiatric: Alert, Disoriented Skin: Warm/Dry Comments Laboratory Tests 08/11/20 13:51: White Blood Count 18.8H, Red Blood Count 4.56, Hemoglobin 12.8, Hematocrit 40, Mean Corpuscular Volume 87, Mean Corpuscular Hemoglobin 28, Mean Corpuscular Hemoglobin Concent 32, Red Cell Distribution Width 14.4, Platelet Count 350, Mean Platelet Volume 10.0, Immature Granulocyte % (Auto) 0, Neutrophils (%) (Auto) 94H, Lymphocytes (%) (Auto) 1L, Monocytes (%) (Auto) 4, Eosinophils (%) (Auto) 0, Basophils (%) (Auto) 0, Neutrophils # (Auto) 17.8H, Lymphocytes # (Auto) 0.1L, Monocytes # (Auto) 0.8, Eosinophils # (Auto) 0.0, Basophils # (Auto) 0.0, Immature Granulocyte # (Auto) 0.1, Neutrophils % (Manual) 94, Lymphocytes % (Manual) 1, Monocytes % (Manual) 5, Hypersegmented Neutrophils MODERATE, Sodium Level 139, Potassium Level 3.8, Chloride Level 103, Carbon Dioxide Level 21, Anion Gap 15H, Blood Urea Nitrogen 11, Creatinine 1.35H, Estimat Glomerular Filtration Rate 37, BUN/Creatinine Ratio 8, Glucose Level 207H, Calcium Level 8.8, Corrected Calcium 8.9, Magnesium Level 1.9, Total Bilirubin 2.7H, Aspartate Amino Transf (AST/SGOT) 193H, Alanine Aminotransferase (ALT/SGPT) 139H, Alkaline Phosphatase 76, Troponin I < 0.028, B-Type Natriuretic Peptide 251.3H, Total Protein 6.8, Albumin 3.9, Lipase 57, Thyroid Stimulating Hormone (TSH) 0.78, Free Thyroxine 1.37 08/11/20 15:21: Urine Color YELLOW, Urine Clarity CLEAR, Urine pH 7.0, Urine Specific [place] 1.015L, Urine Protein TRACEH, Urine Glucose (UA) NEGATIVE, Urine Ketones NEGATIVE, Urine Nitrite NEGATIVE, Urine Bilirubin NEGATIVE, Urine Urobilinogen 4.0, Urine Leukocyte Esterase NEGATIVE, Urine RBC (Auto) TRACE-I, Urine RBC NONE, Urine WBC 2-5, Urine Squamous Epithelial Cells RARE, Urine Crystals NONE, Urine Bacteria FEWH, Urine Casts NONE, Urine Mucus NEGATIVE, Urine Culture Indicated NO 08/11/20 15:44: Lactic Acid Level 4.28*H 08/11/20 18:43: Lactic Acid Level 2.03*H 08/11/20 20:57: Lactic Acid Level 2.25*H 08/11/20 21:07: Glucometer 114H 08/11/20 23:03: Lactic Acid Level 1.81 08/12/20 03:52: White Blood Count 12.6H, Red Blood Count 3.73L, Hemoglobin 10.4L, Hematocrit 33L , Mean Corpuscular Volume 88, Mean Corpuscular Hemoglobin 28, Mean Corpuscular Hemoglobin Concent 32, Red Cell Distribution Width 14.6H, Platelet Count 292, Mean Platelet Volume 10.2, Immature Granulocyte % (Auto) 1, Neutrophils (%) (Auto) 88H, Lymphocytes (%) (Auto) 5L, Monocytes (%) (Auto) 7, Eosinophils (%) (Auto) 0, Basophils (%) (Auto) 0, Neutrophils # (Auto) 11.0H, Lymphocytes # (Auto) 0.6L, Monocytes # (Auto) 0.8, Eosinophils # (Auto) 0.0, Basophils # (Auto) 0.0, Immature Granulocyte # (Auto) 0.1, Sodium Level 140, Potassium Level 3.6, Chloride Level 107, Carbon Dioxide Level 22, Anion Gap 11, Blood Urea Nitrogen 10, Creatinine 1.16, Estimat Glomerular Filtration Rate 45, BUN/Creatinine Ratio 9, Glucose Level 101, Calcium Level 8.0L, Corrected Calcium 8.8, Total Bilirubin 3.9H, Aspartate Amino Transf (AST/SGOT) 86H, Alanine Aminotransferase (ALT/SGPT) 95H, Alkaline Phosphatase 58, Total Protein 5.2L, Albumin 3.0L Assessment/Plan Assessment and Plan 1. Acute Sepsis due to Acute Cholecystitis--due to no pain on exam, advanced age and advanced dementia, conservative management is being pursued with gut rest, IVFs, IV antibiotics and monitoring 2. Dementia--resume aricept, namenda 3. Hypertension--resume lisinopril but increase dose Admission Diagnosis Admission Status: Inpatient Order (span 2 midnights) Reason for Inpatient Admission: Patient will need at least 48hrs of IVFs and IV abx ANTHONY JOHN DO Aug 12, 2020 09:19
--- NOTE | 2020-08-12 12:50 | Progress Note - Surgery ---
Subjective Time Seen by a Provider: 08:59 Subjective/Events-last exam Pt seen and examined, she was sitting up at side of bed eating clear liquid breakfast. Pt denied abdominal pain. Review of Systems General: No Chills, No Night Sweats Pulmonary: No Dyspnea, No Cough Cardiovascular: No: Chest Pain, Palpitations Gastrointestinal: No: Nausea, Vomiting, Abdominal Pain Focused Exam Lactate Level 08/11/20 18:43: Lactic Acid Level 2.03*H 08/11/20 20:57: Lactic Acid Level 2.25*H 08/11/20 23:03: Lactic Acid Level 1.81 Objective Exam Vital Signs Date Time Temp Pulse Resp B/P (MAP) Pulse Ox O2 Delivery O2 Flow Rate FiO2 08/12/20 12:00 36.8 54 12 173/92 (119) 99 Room Air 08/12/20 07:55 36.8 57 18 163/95 (117) 96 Room Air 08/12/20 07:30 100 Room Air 08/12/20 04:05 36.9 70 16 157/78 (104) 98 Room Air 08/12/20 00:00 37.1 72 19 149/74 (99) 97 Room Air 08/11/20 21:00 99 Room Air 08/11/20 20:00 37.4 69 18 188/80 (116) 99 Room Air 08/11/20 18:17 37.3 70 20 137/75 (95) 98 Room Air 08/11/20 18:08 98 Room Air 08/11/20 17:31 36.4 73 18 125/55 (92) 97 Room Air 08/11/20 16:21 36.4 85 18 125/76 97 08/11/20 13:54 36.4 85 18 157/68 (97) 97 08/11/20 13:50 36.4 85 18 157/68 (97) 97 Room Air I & O 08/12/20 07:00 Intake Total 1775 ml Balance 1775 ml Capillary Refill : Less Than 3 Seconds General Appearance: No Apparent Distress Respiratory: Lungs Clear, Normal Breath Sounds, No Accessory Muscle Use, No Respiratory Distress Cardiovascular: Regular Rate, Rhythm, No Murmur Gastrointestinal: non tender, soft, no organomegaly, hernia (umbilical) Extremity: Non Tender, No Calf Tenderness, No Pedal Edema Neurologic/Psychiatric: Alert, Disoriented Results Lab Laboratory Tests 08/11/20 13:51: White Blood Count 18.8H, Red Blood Count 4.56, Hemoglobin 12.8, Hematocrit 40, Mean Corpuscular Volume 87, Mean Corpuscular Hemoglobin 28, Mean Corpuscular Hemoglobin Concent 32, Red Cell Distribution Width 14.4, Platelet Count 350, Mean Platelet Volume 10.0, Immature Granulocyte % (Auto) 0, Neutrophils (%) (Auto) 94H, Lymphocytes (%) (Auto) 1L, Monocytes (%) (Auto) 4, Eosinophils (%) (Auto) 0, Basophils (%) (Auto) 0, Neutrophils # (Auto) 17.8H, Lymphocytes # (Auto) 0.1L, Monocytes # (Auto) 0.8, Eosinophils # (Auto) 0.0, Basophils # (Auto) 0.0, Immature Granulocyte # (Auto) 0.1, Neutrophils % (Manual) 94, Lymphocytes % (Manual) 1, Monocytes % (Manual) 5, Hypersegmented Neutrophils MODERATE, Sodium Level 139, Potassium Level 3.8, Chloride Level 103, Carbon Dioxide Level 21, Anion Gap 15H, Blood Urea Nitrogen 11, Creatinine 1.35H, Estimat Glomerular Filtration Rate 37, BUN/Creatinine Ratio 8, Glucose Level 207H, Calcium Level 8.8, Corrected Calcium 8.9, Magnesium Level 1.9, Total Bilirubin 2.7H, Aspartate Amino Transf (AST/SGOT) 193H, Alanine Aminotransferase (ALT/SGPT) 139H, Alkaline Phosphatase 76, Troponin I < 0.028, B-Type Natriuretic Peptide 251.3H, Total Protein 6.8, Albumin 3.9, Lipase 57, Thyroid Stimulating Hormone (TSH) 0.78, Free Thyroxine 1.37 08/11/20 15:21: Urine Color YELLOW, Urine Clarity CLEAR, Urine pH 7.0, Urine Specific [place] 1.015L, Urine Protein TRACEH, Urine Glucose (UA) NEGATIVE, Urine Ketones NEGATIVE, Urine Nitrite NEGATIVE, Urine Bilirubin NEGATIVE, Urine Urobilinogen 4.0, Urine Leukocyte Esterase NEGATIVE, Urine RBC (Auto) TRACE-I, Urine RBC NONE, Urine WBC 2-5, Urine Squamous Epithelial Cells RARE, Urine Crystals NONE, Urine Bacteria FEWH, Urine Casts NONE, Urine Mucus NEGATIVE, Urine Culture Indicated NO 08/11/20 15:44: Lactic Acid Level 4.28*H 08/11/20 18:43: Lactic Acid Level 2.03*H 08/11/20 20:57: Lactic Acid Level 2.25*H 08/11/20 21:07: Glucometer 114H 08/11/20 23:03: Lactic Acid Level 1.81 08/12/20 03:52: White Blood Count 12.6H, Red Blood Count 3.73L, Hemoglobin 10.4L, Hematocrit 33L , Mean Corpuscular Volume 88, Mean Corpuscular Hemoglobin 28, Mean Corpuscular Hemoglobin Concent 32, Red Cell Distribution Width 14.6H, Platelet Count 292, Mean Platelet Volume 10.2, Immature Granulocyte % (Auto) 1, Neutrophils (%) (Auto) 88H, Lymphocytes (%) (Auto) 5L, Monocytes (%) (Auto) 7, Eosinophils (%) (Auto) 0, Basophils (%) (Auto) 0, Neutrophils # (Auto) 11.0H, Lymphocytes # (Auto) 0.6L, Monocytes # (Auto) 0.8, Eosinophils # (Auto) 0.0, Basophils # (Auto) 0.0, Immature Granulocyte # (Auto) 0.1, Sodium Level 140, Potassium Level 3.6, Chloride Level 107, Carbon Dioxide Level 22, Anion Gap 11, Blood Urea Nitrogen 10, Creatinine 1.16, Estimat Glomerular Filtration Rate 45, BUN/Creatinine Ratio 9, Glucose Level 101, Calcium Level 8.0L, Corrected Calcium 8.8, Total Bilirubin 3.9H, Aspartate Amino Transf (AST/SGOT) 86H, Alanine Aminotransferase (ALT/SGPT) 95H, Alkaline Phosphatase 58, Total Protein 5.2L, Albumin 3.0L 08/12/20 10:12: Glucometer 116H Assessment/Plan Assessment/Plan Assessment/Plan Cholelithiasis Decreased appetite - improving Elevated WBC - improving Dementia Patient has some cholelithiasis on CAT scan but no physical signs of acute cholecystitis this am; denying pain. Her white count came down to 12.6 from 18.8; however her bilirubin increased to 3.9 from 2.7. Her LFT's improved compared to yesterday. At this point I think it is best to watch her, allow diet and recheck labs in am. I don't think she is going to need surgery. SYLVIA PEPPER DO Aug 12, 2020 12:50
[2020-08-12] MEDS ORDERED: amLODIPine 5 MG (NORVASC) TAB PO ONE (17:00)
[2020-08-12] MEDS ORDERED: DONEPEZIL 10 MG (ARICEPT) TAB PO SCH (21:00)
[2020-08-12] MEDS ORDERED: MELATONIN 3 MG TABLET PO SCH (21:00)
[2020-08-12] MEDS: MEMANTINE 5 MG (NAMENDA) TABLET PO SCH (21:44)
[2020-08-13 00:55] VITALS: BP 175/78
[2020-08-13 04:16] VITALS: BP 175/99
[2020-08-13] MEDS: LACTATED RINGERS 1,000 ML IV SCH ×2 (04:19→10:02)
[2020-08-13] MEDS: inSUlin ASPART (NovoLOG) 1 UNIT/0.01 ML (CHARGE PER UNIT) SC SCH ×2 (05:18→11:26)
[2020-08-13] MEDS: PIPERACILLIN/TAZO 4.5 GM/NS 100 ML IV SCH ×2 (05:33)
[2020-08-13] MEDS ORDERED: LEVOTHYROXINE 50 MCG (LEVOTHROID) TAB PO SCH (06:30)
[2020-08-13 07:00] VITALS: BP 175/104
[2020-08-13] MEDS: MEMANTINE 5 MG (NAMENDA) TABLET PO SCH (08:56)
[2020-08-13] MEDS ORDERED: lisINopril 20 MG (PRINIVIL) TABLET PO SCH (09:00)
[2020-08-13 09:21] LABS: HEMATOCRIT 37 % (35-52); HEMOGLOBIN 11.9 g/dL (11.5-16.0); MEAN CORPUSCULAR HEMOGLOBIN 28 pg (25-34); MEAN CORPUSCULAR HGB CONC 32 g/dL (32-36); MEAN CORPUSCULAR VOLUME 87 fL (80-99); MEAN PLATELET VOLUME 9.8 fL (9.0-12.2); PLATELET COUNT 339 10^3/uL (130-400)
[2020-08-13 09:41] LABS: ALBUMIN 3.3 GM/DL (3.2-4.5); BILIRUBIN,TOTAL 1.2 MG/DL (0.1-1.0); CREATININE SERUM 1.38 MG/DL (0.60-1.30); POTASSIUM 3.5 MMOL/L (3.6-5.0)
--- NOTE | 2020-08-13 10:30 | Discharge Summary ---
Diagnosis/Chief Complaint Date of Admission Aug 11, 2020 at 16:48 Date of Discharge Discharge Date: Aug 13, 2020 Discharge Time: 10:30 Admission Diagnosis Admission Diagnosis CHOLELITHIASIS DEMENTIA - SEVERE LEUKOCYTOSIS ANOREXIA HYPERBILIRUBINEMIA ELEVATED TRANSAMINASES DIARRHEA GERD Discharge Diagnosis CHOLELITHIASIS DEMENTIA - SEVERE LEUKOCYTOSIS ANOREXIA HYPERBILIRUBINEMIA ELEVATED TRANSAMINASES DIARRHEA GERD TACHYCARDIA HYPERTENSION Reason Hospital Visit This is a 85 year old female patient of Dr. Allen'guadalupe with severe dementia. She was noted to be shakey and possibly dizzy with poor appetite by her daughter so she was brought to the emergency room where she was found to be septic with apparent acute cholecystitis. Surgery was consulted and the patient had no pain on exam. Surgery vs conservative management was offered. Due to her advanced age and severe dementia, it was decided to proceed with conservative management with IVFs, gut rest, IV antibiotics and monitor labs and any development of pain. Discharge Summary Consultations DR. PEPPER Discharge Physical Examination Allergies: Coded Allergies: No Known Drug Allergies (Unverified , 11/02/13) Vitals & I&Os General Appearance: Alert, Cooperative, Other (ORIENTED TO PERSON, NOT PLACE OR TIME) HEENT: Atraumatic, PERRLA Respiratory: Normal Air Movement, Other (DECREASED IN BASES) Cardiovascular: Regular Rate Abdominal: Normal Bowel Sounds, Soft, No Tenderness Extremities: No Clubbing, No Cyanosis Skin: No Rashes Neuro: Cranial Nerves 3-12 NL Psych/Mental Status: Mental Status NL, Mood NL Hospital Course CHOLELITHIASIS DEMENTIA - SEVERE LEUKOCYTOSIS ANOREXIA HYPERBILIRUBINEMIA ELEVATED TRANSAMINASES DIARRHEA GERD TACHYCARDIA HYPERTENSION CHOLELITHIASIS WITH ACUTE SEPSIS - DUE TO HER ADVANCED DEMENTIA WITHOUT SYMPTOMS OTHER THAN DIARRHEA - RECOMMENDED PATIENT TO AVOID SURGERY IF POSSIBLE. DEMENTIA - SEVERE - SUPPORTIVE CARE ONLY AT THIS TIME. - STOP ARICEPT DUE TO DIARRHEA LEUKOCYTOSIS - RESOLVING ANOREXIA HYPERBILIRUBINEMIA ELEVATED TRANSAMINASES DIARRHEA GERD TACHYCARDIA HYPERTENSION - RESUMED LISINOPRIL Pending Labs Discharge Condition at discharge IMPROVING Instructions to patient/family Please see electronic discharge instructions given to patient. Discharge Medications Reviewed and agree with Discharge Medication list on patient's Discharge Instruction sheet PRINCESS ALLEN MD Aug 13, 2020 10:30
[2020-08-13] MEDS ORDERED: METR500T PO (10:34)
[2020-08-13] MEDS ORDERED: CIPR250T3 PO (10:34)
[2020-08-13] MEDS ORDERED: MTP25TSR PO (10:34)
[2020-08-13] MEDS ORDERED: LISI20TA26 PO (10:36)
[2020-08-13] MEDS ORDERED: DONE10TA41 PO (10:36)
[2020-08-13] MEDS ORDERED: MEMA10TA57 PO (10:36)
--- NOTE | 2020-08-13 10:36 | Discharge Inst-Simple/Standard ---
Discharge Inst-Standard Reconcile Patient Problems Problems Reviewed?: Yes Discharge Medications New, Converted or Re-Newed RX: Transmitted to Pharmacy Patient Instructions/Follow Up Plan of Care/Instructions/FU: 1 [facility] Activity as Tolerated: Yes Discharge Diet: Other Diet (DIET TOLERATED) Return to The Hospital For: ANY CONCERN FOR WORSENING SYMPTOMS, WORSENING ILLNESS OR INJURY PRINCESS CARSON MD Aug 13, 2020 10:36
[2020-08-13 11:30] VITALS: BP 144/81
--- NOTE | 2020-08-13 12:01 | Progress Note - Surgery ---
Subjective Time Seen by a Provider: 09:01 Subjective/Events-last exam Pt seen and examined, sitting up in chair in NAD. Pt denies abdominal pain, tolerting diet. Review of Systems Pulmonary: No Dyspnea, No Cough Cardiovascular: No: Chest Pain, Palpitations Gastrointestinal: No: Nausea, Vomiting, Abdominal Pain Focused Exam Lactate Level 08/11/20 18:43: Lactic Acid Level 2.03*H 08/11/20 20:57: Lactic Acid Level 2.25*H 08/11/20 23:03: Lactic Acid Level 1.81 Objective Exam Vital Signs Date Time Temp Pulse Resp B/P (MAP) Pulse Ox O2 Delivery O2 Flow Rate FiO2 08/13/20 11:30 36.7 62 18 144/81 (102) 95 08/13/20 07:00 119 08/13/20 07:00 35.9 120 16 175/104 (127) 95 Room Air 08/13/20 04:16 36.3 64 16 175/99 (124) 99 Room Air 08/13/20 01:00 82 08/13/20 00:55 36.9 66 16 175/78 (110) 99 Room Air 08/12/20 21:00 100 Room Air 08/12/20 19:51 36.9 68 14 160/81 (107) 98 Room Air 08/12/20 19:24 68 24 160/81 (107) 92 Room Air 08/12/20 19:00 67 08/12/20 16:41 174/77 (109) 08/12/20 16:00 36.7 52 13 189/109 (135) 98 Room Air 08/12/20 12:00 36.8 54 12 173/92 (119) 99 Room Air I & O 08/13/20 07:00 Intake Total 1450 ml Balance 1450 ml Capillary Refill : Less Than 3 Seconds General Appearance: No Apparent Distress Respiratory: Lungs Clear, Normal Breath Sounds, No Accessory Muscle Use, No Respiratory Distress Cardiovascular: Regular Rate, Rhythm, No Murmur Gastrointestinal: non tender, soft, no organomegaly, hernia (umbilical) Extremity: Non Tender, No Calf Tenderness, No Pedal Edema Neurologic/Psychiatric: Alert, Disoriented Results Lab Laboratory Tests 08/12/20 15:29: Glucometer 103 08/12/20 20:21: Glucometer 121H 08/13/20 06:19: Glucometer 93 08/13/20 09:14: White Blood Count 8.0, Red Blood Count 4.27, Hemoglobin 11.9, Hematocrit 37, Mean Corpuscular Volume 87, Mean Corpuscular Hemoglobin 28, Mean Corpuscular Hemoglobin Concent 32, Red Cell Distribution Width 14.5, Platelet Count 339, Mean Platelet Volume 9.8, Sodium Level 143, Potassium Level 3.5L, Chloride Level 107, Carbon Dioxide Level 26, Anion Gap 10, Blood Urea Nitrogen 10, Creatinine 1.38H, Estimat Glomerular Filtration Rate 36, BUN/Creatinine Ratio 7, Glucose Level 129H, Calcium Level 9.0, Corrected Calcium 9.6, Total Bilirubin 1.2H, Aspartate Amino Transf (AST/SGOT) 35H, Alanine Aminotransferase (ALT/SGPT) 72H, Alkaline Phosphatase 59, Total Protein 6.0L, Albumin 3.3 08/13/20 10:56: Glucometer 102 Microbiology 08/11/20 Blood Culture - Preliminary, Resulted No growth Assessment/Plan Assessment/Plan Assessment/Plan Cholelithiasis Decreased appetite - resolved Elevated WBC - resolved Dementia Patient looks great today and has no complaint today. She is ok to go home and can f/u with me to discuss need for cholecystectomy. SYLVIA PEPPER DO Aug 13, 2020 12:01
[2020-08-13 12:10] VITALS: BP 146/72
--- NOTE | 2020-08-19 22:02 | Physician Query Clarification ---
PQ-Uncertain Diagnosis Admission/Discharge Admission Date: Aug 11, 2020 at 16:48 Discharge Date: Aug 13, 2020 at 12:10 Dr: ANTHONY TORRES DO The medical record reflects the following clinical scenario: History/Risk Factors: 85 y/o female patient presents with dizziness and poor appetite found to have septic with apparent cholecystitis, Acuete sepsis was documented in H&P only. Hand P, 08/11: Acute sepsis due to acute cholecystitis, dementia and hypertension. Surgical progress notes, 08/11: Cholelithiasis, decreased appetite, elevated WBC, dementia, no signs of acute cholecystitis at this time. Discharge summary, 08/13: Cholelithiasis, dementia, leukocytosis, anorexia. Clinical Findings: WBC- 18.8 H, 12.8H, 8.0 on 08/11, 08/12 and 08/13.lactic acid 4.28 H Treatment:IV antibiotics. Question: Is Sepsis a clinically valid diagnosis? Sepsis was documented in the Hand P, 08/11 with no further documentation in the medical record. Please document a response in Progress Note or Discharge Summary. 1. Yes, clinically valid, condition resolved. 2. No, condition ruled out. 3. Other, with explanation of clinical findings. 4. Undetermined, no explanation for clinical findings. PHYSICIAN RESPONSE Diagnosis clinically valid: Other, explanation/clinical finding (Dr. Allen's patient) Please remember a lack of response to the above will prompt a phone page by CD[facility]/Coding staff. In responding to this query, please exercise your independent professional judgment. The purpose of this communication is to more accurately reflect the complexity of your patients condition. The fact that a question is asked does not imply that any particular answer is desired or expected. Thank you for your timely response to this clarification. Requestors name: [ ] Phone # [ ] THIS PHYSICIAN QUERY FORM IS A PERMANENT PART OF THE MEDICAL RECORD FAIZAN JENKINS Aug 19, 2020 22:02 ANTHONY TORRES DO Aug 20, 2020 12:21
--- NOTE | 2020-08-21 21:45 | Physician Query Clarification ---
PQ-Uncertain Diagnosis Admission/Discharge Admission Date: Aug 11, 2020 at 16:48 Discharge Date: Aug 13, 2020 at 12:10 PRINCESS Oneil MD The medical record reflects the following clinical scenario: History/Risk Factors: 85 y/o female patient presents with dizziness and poor appetite found to have septic with apparent cholecystitis, Acuete sepsis was documented in H&P only. Hand P, 08/11: Acute sepsis due to acute cholecystitis, dementia and hypertension. Surgical progress notes, 08/11: Cholelithiasis, decreased appetite, elevated WBC, dementia, no signs of acute cholecystitis at this time. Discharge summary, 08/13: Cholelithiasis, dementia, leukocytosis, anorexia. Clinical Findings: WBC- 18.8 H, 12.8H, 8.0 on 08/11, 08/12 and 08/13.lactic acid 4.28 H Treatment:IV antibiotics. Question: Is Sepsis a clinically valid diagnosis? Sepsis was documented in the Hand P, 08/11 with no further documentation in the medical record. Please document a response in Progress Note or Discharge Summary. 1. Yes, clinically valid, condition resolved. 2. No, condition ruled out. 3. Other, with explanation of clinical findings. 4. Undetermined, no explanation for clinical findings. PHYSICIAN RESPONSE Diagnosis clinically valid: Yes, Conditon resolved Please remember a lack of response to the above will prompt a phone page by CD[facility]/Coding staff. In responding to this query, please exercise your independent professional judgment. The purpose of this communication is to more accurately reflect the complexity of your patients condition. The fact that a question is asked does not imply that any particular answer is desired or expected. Thank you for your timely response to this clarification. Requestors name: [ ] Phone # [ ] THIS PHYSICIAN QUERY FORM IS A PERMANENT PART OF THE MEDICAL RECORD ALICEFAIZAN Aug 21, 2020 21:45 PRINCESS CARSON MD Sep 11, 2020 21:40
== END 2020-08-13 12:10 | disposition home or self-care (01) | DRG 872 ==
LOC: EDUNIT# 13:25 → ER 13:27 → CSD 16:48
PROVIDERS: ADMIT Family Medicine; ATTEND Family Medicine
DX: A41.9 Sepsis, unspecified organism (principal); K80.20 Calculus of gallbladder without cholecystitis without obstruction; F03.90 Unspecified dementia, unspecified severity, without behavioral disturbance, psychotic disturbance, mood disturbance, and anxiety; I10 Essential (primary) hypertension; R63.0 Anorexia; R19.7 Diarrhea, unspecified; K21.9 Gastro-esophageal reflux disease without esophagitis; Z68.23 Body mass index [BMI] 23.0-23.9, adult; Z79.890 Hormone replacement therapy; Z79.899 Other long term (current) drug therapy
CPT/HCPCS: 36415; 71045; 74176; 80053; 81000; 82947; 83605; 83690; 83735; 83880; 84439; 84443; 84484; 85007; 85025; 85027; 87040; 93005; 96361; 96365; 96375

== ENCOUNTER 2020-08-27 18:56 | Emergency (ER) | payer MEDICARE ==
[~2020-08-27] VITALS: Ht 157 cm; Wt 68.0 kg
[~2020-08-27 18:56] MED LIST changes: +CIPR250T3 PO; +DONE10TA41 PO; +LISI20TA26 PO; +MEMA10TA57 PO; +METR500T PO; +MTP25TSR PO
[2020-08-27] MEDS ORDERED: ONDANSETRON 4 MG/2 ML (SDV) Z0FRAN IVP ONE (19:15)
[2020-08-27 19:17] LABS: BASOPHILS # (AUTO) 0.1 10^3/uL (0.0-0.1); BASOPHILS % (AUTO) 1 % (0-10); EOSINOPHILS # (AUTO) 0.2 10^3/uL (0.0-0.3); EOSINOPHILS % (AUTO) 1 % (0-10); HEMATOCRIT 37 % (35-52); HEMOGLOBIN 11.6 g/dL (11.5-16.0); LYMPHOCYTES # (AUTO) 1.2 10^3/uL (1.0-4.0); LYMPHOCYTES % (AUTO) 11 % (12-44); MEAN CORPUSCULAR HEMOGLOBIN 28 pg (25-34); MEAN CORPUSCULAR HGB CONC 32 g/dL (32-36); MEAN CORPUSCULAR VOLUME 88 fL (80-99); MEAN PLATELET VOLUME 9.6 fL (9.0-12.2); MONOCYTES # (AUTO) 0.9 10^3/uL (0.0-1.0); MONOCYTES % (AUTO) 8 % (0-12); NEUTROPHILS # (AUTO) 8.7 10^3/uL (1.8-7.8); NEUTROPHILS % (AUTO) 79 % (42-75); PLATELET COUNT 449 10^3/uL (130-400); WHITE BLOOD COUNT 11.1 10^3/uL (4.3-11.0)
[2020-08-27 19:37] LABS: ALBUMIN 3.4 GM/DL (3.2-4.5); BILIRUBIN,TOTAL 1.8 MG/DL (0.1-1.0); CALCIUM 8.5 MG/DL (8.5-10.1); CREATININE SERUM 1.2 MG/DL (0.60-1.30); POTASSIUM 3.7 MMOL/L (3.6-5.0); TOTAL PROTEIN 6.4 GM/DL (6.4-8.2)
[2020-08-27 19:37] LABS: BILIRUBIN,URINE NEGATIVE (NEGATIVE); CLARITY,URINE CLEAR; COLOR,URINE YELLOW; GLUCOSE, URINE (UA) NEGATIVE (NEGATIVE); KETONES,URINE NEGATIVE (NEGATIVE); LEUKOCYTE ESTERASE ,URINE TRACE (NEGATIVE); NITRITE,URINE NEGATIVE (NEGATIVE); PH,URINE 6.5 (5-9); PROTEIN,URINE NEGATIVE (NEGATIVE)
[2020-08-27 20:03] LABS: BACTERIA,URINE FEW /HPF
--- NOTE | 2020-08-27 20:07 | ED GI ---
General Chief Complaint: Abdominal/GI Problems Stated Complaint: ABD PAIN,N/V Nursing Triage Note: Patient brought to ER by daughter with c/o abdominal pain, diarrhea and vomiting that began today. Per daughter patient has a history of dementia and is unable to answer questions. Pt is not able to answer any questions appropriately and when asked where her pain is at she states "I feel fine". Daughter states patient has multiple loose stools today. Pt was seen here on August 11 and admitted for gallbladder problems. Source of Information: Patient, Family Exam Limitations: No Limitations (DIANNA IGLESIAS APRN) History of Present Illness Date Seen by Provider: Aug 27, 2020 Time Seen by Provider: 20:03 Initial Comments To ER by private vehicle with refusal to eat or drink much. Has had ongoing multiple loose stools. Was recently admitted to the hospital for cholecystitis. She was given some IV antibiotics, surgical intervention was deferred. Timing/Duration: 2-3 Days Severity/Quality: Moderate Location: Generalized Abdomen Activities at Onset: None Associated Symptoms: Denies Symptoms (DIANNA IGLESIAS APRN) Allergies and Home Medications Allergies Coded Allergies: No Known Drug Allergies (Unverified , 11/02/13) Home Medications Ciprofloxacin HCl 250 Mg Tablet, 250 MG PO BID Prescribed by: PRINCESS CARSON on 08/13/20 1034 Donepezil HCl 10 Mg Tablet, 10 MG PO HS Prescribed by: PRINCESS CARSON on 08/13/20 1036 Levothyroxine Sodium 50 Mcg Tablet, 1 EACH PO DAILY, (Reported) Lisinopril 20 Mg Tablet, 20 MG PO DAILY Prescribed by: PRINCESS CARSON on 08/13/20 1036 Memantine HCl 10 Mg Tablet, 10 MG PO BID Prescribed by: PRINCESS CARSON on 08/13/20 1036 Metoprolol Succinate 25 Mg Tab.er.24h, 25 MG PO DAILY Prescribed by: PRINCESS CARSON on 08/13/20 1034 Metronidazole 500 Mg Tablet, 500 MG PO TID Prescribed by: PRINCESS CARSON on 08/13/20 1034 Ondansetron 8 Mg Tab.rapdis, 8 MG PO Q8H PRN for NAUSEA/VOMITING Prescribed by: DIANNA IGLESIAS on 10/09/18 1637 Pantoprazole Sodium 20 Mg Tablet.dr, 40 MG PO DAILY Prescribed by: TONYA MOHAN on 11/02/13 1056 Pravastatin Sodium 20 Mg Tablet, 20 MG PO DAILY, (Reported) Sucralfate 1 Gm Tab, 1 GM PO QID Prescribed by: TONYA MOHAN on 11/02/13 1056 Patient Home Medication List Home Medication List Reviewed: Yes (DIANNA IGLESIAS APRN) Review of Systems Review of Systems Constitutional: see HPI EENTM: No Symptoms Reported Respiratory: No Symptoms Reported Cardiovascular: No Symptoms Reported Gastrointestinal: See HPI, Abdominal Pain Genitourinary: No Symptoms Reported Musculoskeletal: no symptoms reported Skin: no symptoms reported Psychiatric/Neurological: No Symptoms Reported Endocrine: No Symptoms Reported Hematologic/Lymphatic: No Symptoms Reported (DIANNA IGLESIAS APRN) Past Lkmfccs-Eqkcev-Cnvpmc Hx Patient Social History Tobacco Use?: No Smoking Status: Never a Smoker Use of E-Cig and/or Vaping dev: No Use of E-Cig and/or Vaping Carlos: Never a User Substance use?: No Alcohol Use?: No Pt feels they are or have been: No (DIANNA IGLESIAS APRN) Immunizations Up To Date First/Initial COVID19 Vaccinat: Feb 2020 Second COVID19 Vaccination Juan: Mar 2020 COVID19 Vaccine Pin Pusher: Moderna (DIANNA IGLESIAS APRN) Past Medical History Surgery/Hospitalization HX: Pt was in this hospital on August 11 for gallbladder problems Surgeries: Yes Respiratory: No Cardiac: No Neurological: No Gastrointestinal: No Musculoskeletal: No Endocrine: Yes (DIANNA IGLESIAS APRN) Family Medical History Diabetes (DIANNA IGLESIAS APRN) Physical Exam Vital Signs Vital Signs - First Documented 08/27/20 19:00 Temp 37.2 Pulse 68 Resp 16 B/P (MAP) 198/97 (130) Pulse Ox 98 O2 Delivery Room Air (ALIE PEGUERO MD) Vital Signs Capillary Refill : Less Than 3 Seconds (DIANNA IGLESIAS APRN) Height/Weight/BMI Height: 5'4.00" Weight: 155lbs. oz. [id number]; 27.00 BMI Method:Estimated General Appearance: WD/WN, no apparent distress, other (She is alert and oriented in no distress. She is afebrile. Her abdomen is nontender to palpation.) HEENT: PERRL/EOMI, normal ENT inspection Neck: non-tender, full range of motion Respiratory: no respiratory distress, no accessory muscle use Gastrointestinal: normal bowel sounds, non tender, soft Extremities: normal range of motion, non-tender Neurologic/Psychiatric: alert, normal mood/affect, oriented x 3 Skin: normal color, warm/dry (DIANNA IGLESIAS APRN) Progress/Results/Core Measures Results/Orders Lab Results Laboratory Tests Test 08/27/20 19:09 08/27/20 19:32 Range/Units White Blood Count 11.1 H 4.3-11.0 10^3/uL Red Blood Count 4.17 3.80-5.11 10^6/uL Hemoglobin 11.6 11.5-16.0 g/dL Hematocrit 37 35-52 % Mean Corpuscular Volume 88 80-99 fL Mean Corpuscular Hemoglobin 28 25-34 pg Mean Corpuscular Hemoglobin Concent 32 32-36 g/dL Red Cell Distribution Width 14.7 H 10.0-14.5 % Platelet Count 449 H 130-400 10^3/uL Mean Platelet Volume 9.6 9.0-12.2 fL Immature Granulocyte % (Auto) 1 % Neutrophils (%) (Auto) 79 H 42-75 % Lymphocytes (%) (Auto) 11 L 12-44 % Monocytes (%) (Auto) 8 0-12 % Eosinophils (%) (Auto) 1 0-10 % Basophils (%) (Auto) 1 0-10 % Neutrophils # (Auto) 8.7 H 1.8-7.8 10^3/uL Lymphocytes # (Auto) 1.2 1.0-4.0 10^3/uL Monocytes # (Auto) 0.9 0.0-1.0 10^3/uL Eosinophils # (Auto) 0.2 0.0-0.3 10^3/uL Basophils # (Auto) 0.1 0.0-0.1 10^3/uL Immature Granulocyte # (Auto) 0.1 0.0-0.1 10^3/uL Sodium Level 139 135-145 MMOL/L Potassium Level 3.7 3.6-5.0 MMOL/L Chloride Level 102 98-107 MMOL/L Carbon Dioxide Level 27 21-32 MMOL/L Anion Gap 10 5-14 MMOL/L Blood Urea Nitrogen 8 7-18 MG/DL Creatinine 1.20 0.60-1.30 MG/DL Estimat Glomerular Filtration Rate 43 BUN/Creatinine Ratio 7 Glucose Level 96 70-105 MG/DL Calcium Level 8.5 8.5-10.1 MG/DL Corrected Calcium 9.0 8.5-10.1 MG/DL Total Bilirubin 1.8 H 0.1-1.0 MG/DL Aspartate Amino Transf (AST/SGOT) 83 H 5-34 U/L Alanine Aminotransferase (ALT/SGPT) 43 0-55 U/L Alkaline Phosphatase 108 40-136 U/L C-Reactive Protein High Sensitivity 0.70 H 0.00-0.50 MG/DL Total Protein 6.4 6.4-8.2 GM/DL Albumin 3.4 3.2-4.5 GM/DL Lipase 49 8-78 U/L Urine Color YELLOW Urine Clarity CLEAR Urine pH 6.5 5-9 Urine Specific Sharon <=1.005 1.016-1.022 Urine Protein NEGATIVE NEGATIVE Urine Glucose (UA) NEGATIVE NEGATIVE Urine Ketones NEGATIVE NEGATIVE Urine Nitrite NEGATIVE NEGATIVE Urine Bilirubin NEGATIVE NEGATIVE Urine Urobilinogen 0.2 < = 1.0 MG/DL Urine Leukocyte Esterase TRACE H NEGATIVE Urine RBC (Auto) TRACE-I NEGATIVE Urine RBC NONE /HPF Urine WBC 2-5 /HPF Urine Squamous Epithelial Cells 5-10 /HPF Urine Crystals NONE /LPF Urine Bacteria FEW H /HPF Urine Casts NONE /LPF Urine Mucus NEGATIVE /LPF Urine Culture Indicated YES (ALIE PEGUERO MD) My Orders Orders - ALIE PEGUERO MD Ed Iv/Invasive Line Start (08/27/20 19:04) Cbc With Automated Diff (08/27/20 19:04) Comprehensive Metabolic Panel (08/27/20 19:04) Hs C Reactive Protein (08/27/20 19:04) Lipase (08/27/20 19:04) Ua Culture If Indicated (08/27/20 19:04) Ondansetron Injection (Zofran Injectio (08/27/20 19:15) Urine Culture (08/27/20 19:32) (ALIE PEGUERO MD) Medications Given in ED Current Medications Medications Dose Ordered Sig/Teja Route Start Time Stop Time Status Last Admin Dose Admin Ondansetron HCl 4 mg ONCE ONCE IVP 08/27/20 19:15 08/27/20 19:16 DC 08/27/20 19:25 4 MG (ALIE PEGUERO MD) Vital Signs/I&O 08/27/20 08/27/20 19:00 21:04 Temp 37.2 36.5 Pulse 68 60 Resp 16 16 B/P (MAP) 198/97 (130) 191/76 Pulse Ox 98 96 O2 Delivery Room Air Room Air (ALIE PEGUERO MD) Blood Pressure Mean: 130 Departure Communication (Admissions) Family Conversation NAME: JAMEE OSORIO [facility] REC#: [id number] PT STATUS: REG ER : 1935 PHYSICIAN: DIANNA IGLESIAS APRN ADMIT DATE: 08/27/20/ER Draft Date of Exam:08/27/20 CT ABDOMEN/PELVIS WO PROCEDURE: CT abdomen and pelvis without contrast. TECHNIQUE: Multiple contiguous axial images were obtained through the abdomen and pelvis without the use of intravenous contrast. Auto Exposure Controls were utilized during the CT exam to meet ALARA standards for radiation dose reduction. INDICATION: Abdominal pain, diarrhea. COMPARISON: 08/11/2020. FINDINGS: 'There is a small hiatal hernia. The lung bases are clear. There is cholelithiasis without cholecystitis. The solid organs and vascular structures are stable. There is no bowel obstruction, free air or free fluid. There are few diverticula in the sigmoid colon without diverticulitis. There is no inflammatory process. The uterus is surgically absent. The urinary bladder is normal. The abdominal wall is intact. Osseous structures stable. IMPRESSION: 1. Stable hiatal hernia. 2. Cholelithiasis without cholecystitis. 3. Diverticulosis of the sigmoid colon without diverticulitis. 4. No inflammatory process, free air or free fluid. Dictated on workstation # [id number] Dict: 08/27/202035 Trans: 08/27/202044 [facility] [id number] Interpreted by: JATIN LION Electronically signed by: [id number] with Dr. Sanchez. I do not have any reason to admit her to the hospital tonight as she is not septic or in severe pain nor has she vomited. She is nontender to palpation in the right upper abdomen. However she is still quite symptomatic from this with reduced intake because of it. I will keep her n.p.o. per Dr. Sanchez's recommendation, she will see him in the clinic tomorrow for possible cholecystectomy on Thursday. (DIANNA IGLESIAS APRN) Impression Primary Impression: Cholelithiasis Disposition: HOME, SELF-CARE Condition: Stable Departure-Patient Inst. Decision time for Depature: 20:48 (DIANNA IGLESIAS APRN) Referrals: PRNICESS CARSON MD (PCP/Family) Primary Care Physician Patient Instructions: No Instuctions Given Add. Discharge Instructions: 1. Do not eat or drink anything after about 4 AM in preparation for a gallbladder ultrasound. Call the scheduling department at 8 AM to see how soon they can get her gallbladder ultrasound tomorrow. Ideally you need to be without food or fluids for 6 hours prior to the ultrasound. Call Dr. Pepper's office tomorrow morning to make an appointment to be seen tomorrow. Tell them that Dr. Sanchez wanted you to be seen in the clinic tomorrow. All discharge instructions reviewed with patient and/or family. Voiced understanding. ATTENDING PHYSICIAN NOTE: I was physically present as attending physician in the emergency department during the care of this patient, but I was not directly involved in the decision making or delivery of care for this patient. (ALIE PEGUERO MD) Copy Copies To 1: SYLVIA PEPPER PETER J APRN Aug 27, 2020 20:07 ALIE PEGUERO MD Aug 28, 2020 06:48
--- NOTE | 2020-08-27 20:45 | Diagnostic Imaging Report ---
PROCEDURE: CT abdomen and pelvis without contrast. TECHNIQUE: Multiple contiguous axial images were obtained through the abdomen and pelvis without the use of intravenous contrast. Auto Exposure Controls were utilized during the CT exam to meet ALARA standards for radiation dose reduction. INDICATION: Abdominal pain, diarrhea. COMPARISON: 08/11/2020. FINDINGS: 'There is a small hiatal hernia. The lung bases are clear. There is cholelithiasis without cholecystitis. The solid organs and vascular structures are stable. There is no bowel obstruction, free air or free fluid. There are few diverticula in the sigmoid colon without diverticulitis. There is no inflammatory process. The uterus is surgically absent. The urinary bladder is normal. The abdominal wall is intact. Osseous structures stable. IMPRESSION: 1. Stable hiatal hernia. 2. Cholelithiasis without cholecystitis. 3. Diverticulosis of the sigmoid colon without diverticulitis. 4. No inflammatory process, free air or free fluid. Dictated by: Dictated on workstation # [id number]
[2020-08-27 21:04] VITALS: BP 191/76
== END 2020-08-27 21:05 | disposition home or self-care (01) ==
LOC: EDUNIT# 18:56 → ER 18:58
DX: K80.20 Calculus of gallbladder without cholecystitis without obstruction (principal)
CPT/HCPCS: 36415; 74176; 80053; 81000; 83690; 85025; 86141; 87088

== ENCOUNTER → 2020-08-28 | Outpatient (CLI) | payer MEDICARE ==
--- NOTE | 2020-08-28 10:43 | Diagnostic Imaging Report ---
PROCEDURE: US Gallbladder. TECHNIQUE: Multiple real-time grayscale images were obtained over the right upper quadrant in various projections. INDICATION: Nausea, vomiting and abdominal pain. COMPARISON: CT abdomen pelvis from 08/27/2020 FINDINGS: The liver is normal in size and echogenicity. There is no focal hepatic mass. The main portal vein is patent with antegrade flow. Gallbladder is moderately distended. There is a 1.0 x 1.0 cm stone within the proximal common bile duct resulting in dilation of common bile duct measuring up to 1.2 cm. There are some small mobile gallstones present. The visualized portions of the pancreas are normal. Portions of the head and tail are obscured by overlying bowel gas. The right kidney is normal in size. No hydronephrosis, shadowing calculi, or suspicious mass lesion. Large exophytic cyst in the mid right kidney is stable measuring up to 7.0 cm. This requires no dedicated followup imaging. IMPRESSION: 1. Choledocholithiasis with obstructing 1 cm stone in the proximal common bile duct. Distended gallbladder with a few mobile gallstones but no gallbladder wall thickening or pericholecystic fluid. Dictated by: Dictated on workstation # [id number]
== END ==
LOC: RAD 10:30
PROVIDERS: ATTEND Nurse Practitioner Family
DX: K80.70 Calculus of gallbladder and bile duct without cholecystitis without obstruction (principal); K82.8 Other specified diseases of gallbladder
CPT/HCPCS: 76705

== ENCOUNTER 2020-10-31 23:42 | Emergency (ER) | payer MEDICARE ==
[~2020-10-31] VITALS: Ht 160 cm; Wt 58.0 kg
[2020-11-01 02:12] LABS: BASOPHILS # (AUTO) 0.1 10^3/uL (0.0-0.1); BASOPHILS % (AUTO) 1 % (0-10); EOSINOPHILS # (AUTO) 0.1 10^3/uL (0.0-0.3); EOSINOPHILS % (AUTO) 1 % (0-10); HEMATOCRIT 38 % (35-52); LYMPHOCYTES # (AUTO) 1.2 10^3/uL (1.0-4.0); LYMPHOCYTES % (AUTO) 12 % (12-44); MEAN CORPUSCULAR HEMOGLOBIN 28 pg (25-34); MEAN CORPUSCULAR HGB CONC 32 g/dL (32-36); MEAN CORPUSCULAR VOLUME 87 fL (80-99); MEAN PLATELET VOLUME 9.8 fL (9.0-12.2); MONOCYTES # (AUTO) 0.9 10^3/uL (0.0-1.0); MONOCYTES % (AUTO) 9 % (0-12); NEUTROPHILS # (AUTO) 7.6 10^3/uL (1.8-7.8); NEUTROPHILS % (AUTO) 77 % (42-75); PLATELET COUNT 407 10^3/uL (130-400); WHITE BLOOD COUNT 9.8 10^3/uL (4.3-11.0)
[2020-11-01 02:14] LABS: ALBUMIN 3.6 GM/DL (3.2-4.5); BILIRUBIN,TOTAL 0.5 MG/DL (0.1-1.0); CALCIUM 9.2 MG/DL (8.5-10.1); CREATININE SERUM 1.63 MG/DL (0.60-1.30); MAGNESIUM 2.2 MG/DL (1.6-2.4); POTASSIUM 3.9 MMOL/L (3.6-5.0); TOTAL PROTEIN 6.5 GM/DL (6.4-8.2)
[2020-11-01 02:15] LABS: CLARITY,URINE CLEAR; COLOR,URINE YELLOW; PH,URINE 6.5 (5-9)
[2020-11-01 02:16] LABS: AMORPHOUS SEDIMENT,UR RARE AMOR URATES /LPF; BACTERIA,URINE TRACE /HPF; BILIRUBIN,URINE NEGATIVE (NEGATIVE); GLUCOSE, URINE (UA) NEGATIVE (NEGATIVE); KETONES,URINE NEGATIVE (NEGATIVE); LEUKOCYTE ESTERASE ,URINE NEGATIVE (NEGATIVE); NITRITE,URINE NEGATIVE (NEGATIVE); PROTEIN,URINE NEGATIVE (NEGATIVE); RBC,URINE 0-2 /HPF; SQUAMOUS EPITHELIAL CELL,UR 0-2 /HPF
[2020-11-01 03:15] LABS: TSH (THYROID ANALYZER) 0.89 UIU/ML (0.35-4.94)
--- NOTE | 2020-11-01 04:22 | ED General ---
General Chief Complaint: Altered Mental Status Stated Complaint: AMS Nursing Triage Note: PT ARRIVES TO ED FROM HOME, EMS REPORT THAT THE PATIENT HAS A HX OF DEMENTIA BUT HAS BEEN INCREASINGLY CONFUSED TODAY. PT APHASIC, ONLY MUMBLES ON ARRIVAL. Source of Information: Patient, EMS, Family Exam Limitations: No Limitations History of Present Illness Date Seen by Provider: Oct 31, 2020 Time Seen by Provider: 23:40 Initial Comments This 85-year-old woman with rather advanced dementia presents to the emergency room via EMS with a change in baseline throughout the day today. One of her daughters went to the home around 1029 and noted her to be more confused. A home health aide also stated that she had been more confused than usual. Over the last couple of days she has been more confused and worsening today. Family has a video monitoring system in the home and noted that she fell without injury around 2129. She was able to get up and ambulate on her own power after the fall. At that time she was noted to be diaphoretic. She did not appear to be in any pain. She has experienced diarrhea recently due to her dementia medications. This did improve when she switched to a patch. She has had a Covid vaccination in March. There was some concern for possible right leg pain when she was moved to the [facility]. Allergies and Home Medications Allergies Coded Allergies: No Known Drug Allergies (Unverified , 11/02/13) Patient Home Medication List Home Medication List Reviewed: Yes Ciprofloxacin HCl (Ciprofloxacin HCl) 250 Mg Tablet, 250 MG PO BID Prescribed by: PRINCESS ALLEN on 08/13/20 1034 Donepezil HCl (Donepezil HCl) 10 Mg Tablet, 10 MG PO HS Prescribed by: PRINCESS ALLEN on 08/13/20 1036 Levothyroxine Sodium (Levothyroxine 50 Mcg Tab) 50 Mcg Tablet, 1 EACH PO DAILY, (Reported) Entered as Reported by: RONNA KAM on 11/02/13 0805 Lisinopril (Lisinopril) 20 Mg Tablet, 20 MG PO DAILY Prescribed by: PRINCESS ALLEN on 08/13/20 1036 Memantine HCl (Memantine HCl) 10 Mg Tablet, 10 MG PO BID Prescribed by: PRINCESS ALLEN on 08/13/20 1036 Metoprolol Succinate (Metoprolol Succinate) 25 Mg Tab.er.24h, 25 MG PO DAILY Prescribed by: PRINCESS ALLEN on 08/13/20 1034 Metoprolol Succinate (Toprol Xl) 25 Mg Tab.er.24h, 25 MG PO DAILY Prescribed by: ALIE GREGORY on 11/01/20 0643 Metronidazole (Flagyl) 500 Mg Tablet, 500 MG PO TID Prescribed by: PRINCESS ALLEN on 08/13/20 1034 Ondansetron (Ondansetron Odt) 8 Mg Tab.rapdis, 8 MG PO Q8H PRN for NAUSEA/VO MITING Prescribed by: DIANNA IGLESIAS on 10/09/18 1637 Pantoprazole Sodium (Protonix) 20 Mg Tablet.dr, 40 MG PO DAILY Prescribed by: TONYA MOHAN on 11/02/13 1056 Pravastatin Sodium (Pravachol) 20 Mg Tablet, 20 MG PO DAILY, (Reported) Entered as Reported by: RONNA KAM on 11/02/13 0805 Sucralfate (Carafate) 1 Gm Tab, 1 GM PO QID Prescribed by: TONYA MOHAN on 11/02/13 1056 Review of Systems Review of Systems Constitutional: no symptoms reported EENTM: no symptoms reported Respiratory: no symptoms reported Cardiovascular: no symptoms reported Gastrointestinal: no symptoms reported Genitourinary: no symptoms reported : No Musculoskeletal: see HPI Skin: no symptoms reported Psychiatric/Neurological: See HPI Hematologic/Lymphatic: No Symptoms Reported Immunological/Allergic: no symptoms reported Past Sjakias-Htyeni-Npcwoj Hx Patient Social History Smoking Status: Unknown if Ever Smoked Substance use?: No Immunizations Up To Date First/Initial COVID19 Vaccinat: Feb 2020 Second COVID19 Vaccination Juan: Mar 2020 Past Medical History Surgery/Hospitalization HX: Pt was in this hospital on August 11 for gallbladder problems Surgeries: Yes (History of ERCP) Abdominal Respiratory: No Cardiac: Yes Hypertension Neurological: Yes Dementia : No Genitourinary: No Gastrointestinal: Yes Gall Bladder Disease (Gallstones) Musculoskeletal: No Endocrine: Yes HEENT: No Cancer: No Psychosocial: No Integumentary: No Family Medical History Diabetes Physical Exam-Suspected Sepsis Physical Exam Vital Signs Vital Signs - First Documented 10/31/20 23:42 Temp 36.8 Pulse 128 Resp 16 B/P (MAP) 132/77 (95) Pulse Ox 96 O2 Delivery Room Air Capillary Refill : Less Than 3 Seconds Blood Pressure Mean: 95 Height, Weight, BMI Height: 5'4.00" Weight: 155lbs. oz. [id number]; 22.00 BMI Method:Estimated General Appearance: No Apparent Distress, WD/WN, Other (Decreased responsiveness and will not follow instructions. She is alert and responds to voice.) HEENT: PERRL/EOMI, Normal ENT Inspection, Other (Oropharynx somewhat dry) Neck: Normal Inspection; No JVD Respiratory: Lungs Clear, Normal Breath Sounds, No Accessory Muscle Use Cardiovascular: No Edema, No Murmur, Tachycardia Gastrointestinal: Normal Bowel Sounds, Non Tender, Soft Extremity: Normal Inspection, No Pedal Edema Neurologic/Psychiatric: Alert, Other (Generalized weakness. No obvious focal deficits. Does not follow instructions. Minimal response to questions.) Skin: normal color, warm/dry Focused Exam Lactate Level 10/31/20 23:58: Lactic Acid Level 1.50 Progress/Results/Core Measures Suspected Sepsis SIRS Temperature: Pulse: 128 Respiratory Rate: 16 Laboratory Tests 10/31/20 23:58: White Blood Count 9.8 Blood Pressure 132 /77 Mean: 95 10/31/20 23:58: Lactic Acid Level 1.50 Laboratory Tests 10/31/20 23:58: Creatinine 1.63H, Platelet Count 407H, Total Bilirubin 0.5 Results/Orders Lab Results Laboratory Tests Test 10/31/20 23:58 11/01/20 01:11 11/01/20 02:25 11/01/20 04:37 Range/Units White Blood Count 9.8 4.3-11.0 10^3/uL Red Blood Count 4.35 3.80-5.11 10^6/uL Hemoglobin 12.0 11.5-16.0 g/dL Hematocrit 38 35-52 % Mean Corpuscular Volume 87 80-99 fL Mean Corpuscular Hemoglobin 28 25-34 pg Mean Corpuscular Hemoglobin Concent 32 32-36 g/dL Red Cell Distribution Width 14.3 10.0-14.5 % Platelet Count 407 H 130-400 10^3/uL Mean Platelet Volume 9.8 9.0-12.2 fL Immature Granulocyte % (Auto) 0 % Neutrophils (%) (Auto) 77 H 42-75 % Lymphocytes (%) (Auto) 12 12-44 % Monocytes (%) (Auto) 9 0-12 % Eosinophils (%) (Auto) 1 0-10 % Basophils (%) (Auto) 1 0-10 % Neutrophils # (Auto) 7.6 1.8-7.8 10^3/uL Lymphocytes # (Auto) 1.2 1.0-4.0 10^3/uL Monocytes # (Auto) 0.9 0.0-1.0 10^3/uL Eosinophils # (Auto) 0.1 0.0-0.3 10^3/uL Basophils # (Auto) 0.1 0.0-0.1 10^3/uL Immature Granulocyte # (Auto) 0.0 0.0-0.1 10^3/uL Urine Color YELLOW Urine Clarity CLEAR Urine pH 6.5 5-9 Urine Specific [place] 1.010 L 1.016-1.022 Urine Protein NEGATIVE NEGATIVE Urine Glucose (UA) NEGATIVE NEGATIVE Urine Ketones NEGATIVE NEGATIVE Urine Nitrite NEGATIVE NEGATIVE Urine Bilirubin NEGATIVE NEGATIVE Urine Urobilinogen 0.2 < = 1.0 MG/DL Urine Leukocyte Esterase NEGATIVE NEGATIVE Urine RBC (Auto) 1+ H NEGATIVE Urine RBC 0-2 /HPF Urine WBC NONE /HPF Urine Squamous Epithelial Cells 0-2 /HPF Urine Crystals PRESENT H /LPF Urine Amorphous Sediment RARE [place] URATES H /LPF Urine Bacteria TRACE /HPF Urine Casts NONE /LPF Urine Mucus NEGATIVE /LPF Urine Culture Indicated NO Sodium Level 141 135-145 MMOL/L Potassium Level 3.9 3.6-5.0 MMOL/L Chloride Level 104 98-107 MMOL/L Carbon Dioxide Level 23 21-32 MMOL/L Anion Gap 14 5-14 MMOL/L Blood Urea Nitrogen 16 7-18 MG/DL Creatinine 1.63 H 0.60-1.30 MG/DL Estimat Glomerular Filtration Rate 30 BUN/Creatinine Ratio 10 Glucose Level 110 H 70-105 MG/DL Lactic Acid Level 1.50 0.50-2.00 MMOL/L Calcium Level 9.2 8.5-10.1 MG/DL Corrected Calcium 9.5 8.5-10.1 MG/DL Magnesium Level 2.2 1.6-2.4 MG/DL Total Bilirubin 0.5 0.1-1.0 MG/DL Aspartate Amino Transf (AST/SGOT) 12 5-34 U/L Alanine Aminotransferase (ALT/SGPT) 11 0-55 U/L Alkaline Phosphatase 55 40-136 U/L C-Reactive Protein High Sensitivity 0.08 0.00-0.50 MG/DL Total Protein 6.5 6.4-8.2 GM/DL Albumin 3.6 3.2-4.5 GM/DL Influenza Type A Antigen NEGATIVE NEGATIVE Influenza Type B Antigen NEGATIVE NEGATIVE SARS-CoV-2 RNA (RT-PCR) Not Detected Not Detecte Troponin I 0.035 H 0.045 H <0.028 NG/ML TSH [place] Testing 0.89 0.35-4.94 UIU/ML My Orders Orders - ALIE PEGUERO MD Cbc With Automated Diff (10/31/20 23:58) Comprehensive Metabolic Panel (10/31/20 23:58) Hs C Reactive Protein (10/31/20 23:58) Magnesium (10/31/20 23:58) Urinalysis (10/31/20 23:58) Lactic Acid Analyzer (10/31/20 23:58) Blood Culture (10/31/20 23:58) Blood Culture (10/31/20 23:58) Troponin I (11/01/20 02:14) Thyroid Analyzer (11/01/20 02:14) Influenza A & B Antigens (11/01/20 01:11) Troponin I (11/01/20 04:30) Ct Head Wo (11/01/20 03:55) Covid 19 Inhouse Test (11/01/20 03:55) Chest 1 View, Ap/Pa Only (11/01/20 04:15) Lactated Ringers (Lr 1000 Ml Iv Solution (11/01/20 05:00) Pelvis (11/01/20 ) Adenosine Injection (Adenocard Injection (11/01/20 06:15) Adenosine Injection (Adenocard Injection (11/01/20 06:15) Ekg Tracing (11/01/20 06:34) Ekg Tracing (11/01/20 06:34) Metoprolol Succinate (Xl) Tab (Toprol Xl (11/01/20 06:45) Medications Given in ED Current Medications Medications Dose Ordered Sig/Teja Route Start Time Stop Time Status Last Admin Dose Admin Adenosine 6 mg ONCE ONCE IV 11/01/20 06:15 11/01/20 06:16 DC 11/01/20 06:14 6 MG Lactated Ringer's 1,000 ml @ 0 mls/hr Q0M ONCE IV 11/01/20 05:00 11/01/20 05:01 DC 11/01/20 05:06 1,000 MLS/HR Metoprolol Succinate 25 mg ONCE ONCE PO 11/01/20 06:45 11/01/20 06:46 DC 11/01/20 07:08 25 MG Vital Signs/I&O 10/31/20 11/01/20 23:42 07:15 Temp 36.8 Pulse 128 79 Resp 16 18 B/P (MAP) 132/77 (95) 169/101 Pulse Ox 96 97 O2 Delivery Room Air Room Air Capillary Refill : Less Than 3 Seconds Blood Pressure Mean: 95 Progress Note #1: Time: 04:54 Progress Note Septic work-up was pursued but no infection was identified. Influenza and Covid swabs were negative. IV fluids were infused with minimal improvement in heart rate. After the EMR downtime, labs could be compared to prior. Is now evident that creatinine is notably elevated from baseline. We are therefore infusing a second liter of IV fluid. Troponin was minimally elevated on the first draw and a repeat 2 hours later is pending. CT of the head was unremarkable. Disposition at this time is pending the troponin result. Progress Note #2: Progress Note No source of infection was identified. Repeat troponin was slightly increased. It was noted that heart rate remained approximately 120 and on variable despite changes in activity and 1500 mL and fluid bolus. This was discussed with Dr. Danielson. To further investigate we administered adenosine 6 mg. After cardiac pause patient converted to a sinus rhythm with a heart rate in the 70s. No underlying P waves were observed during cardiac pause to suggest atrial flutter. Perhaps the initial rhythm was a narrow complex tachycardia. Plan at this time is to restart her Toprol-XL and have her follow-up with Dr. Danielson next week. All parties involved are in agreement that aggressive therapies and admission would not be appropriate given her advanced dementia. ECG Initial ECG Impression Date: Nov 01, 2020 Initial ECG Impression Time: 00:11 Initial ECG Rate: 124 Initial ECG Rhythm: S.Tach Comment Sinus tachycardia with no diagnostic ST elevation or depression. No abnormal intervals or axis deviation. EKG #1: EKG Time: 06:12 Rate: 80 Comment Narrow complex tachycardia converting to sinus rhythm after administration of adenosine. EKG #2: EKG Time: 06:14 Rate: 74 Rhythm: Normal Sinus Intervals: Normal ECG Impression: Normal Comment Normal sinus rhythm with no ST elevation or depression. No abnormal intervals or axis deviation. Diagnostic Imaging Diagonstic Imaging: Xray Plain Films/CT/US/NM/MRI: chest Comments Chest x-ray viewed by me. Report not yet available. No acute abnormalities appreciated. Diagonstic Imaging: CT Plain Films/CT/US/NM/MRI: head Comments CT head viewed by me and stat rad report reviewed. No acute abnormalities were appreciated. Departure Impression Primary Impression: Altered mental status Qualified Codes: R41.82 - Altered mental status, unspecified Additional Impressions: Acute renal insufficiency Sinus tachycardia Advanced dementia Narrow complex tachycardia Elevated troponin Disposition: HOME, SELF-CARE Condition: Improved Departure-Patient Inst. Decision time for Depature: 06:30 Referrals: PRINCESS ALLEN MD (PCP/Family) Primary Care Physician CRISSY DANIELSON JR, MD Patient Instructions: Tachycardia (DC) Add. Discharge Instructions: Start the Toprol-XL prescription tomorrow. She is receiving her first dose in the ER this morning. Call Dr. Danielson office today to arrange a follow-up appointment for next week. Take the copies of the EKG strips with you to that appointment. Follow-up with Dr. Allen as soon as possible as well. Encourage plenty of clear liquids to stay well-hydrated. Call with questions or concerns. Return to the ER if there are worsening symptoms. All discharge instructions reviewed with patient and/or family. Voiced understanding. Scripts Metoprolol Succinate (Toprol Xl) 25 Mg Tab.er.24h 25 MG PO DAILY, #30 TAB Prov: ALIE PEGUERO MD 11/01/20 Copy Copies To 1: PRINCESS ALLEN MD Copies To 2: CRISSY DANIELSON JR, MD BRUEGGEMANN, JOSHUA T MD Nov 01, 2020 04:22
[2020-11-01] MEDS ORDERED: LACTATED RINGERS 1,000 ML IV ONE (05:00)
--- NOTE | 2020-11-01 06:07 | Diagnostic Imaging Report ---
INDICATION: Altered mental status. Noncontrast brain CT is performed. There is no previous study for comparison. TECHNIQUE: Multiple contiguous axial images were obtained through the brain without the use of intravenous contrast. Auto Exposure Controls were utilized during the CT exam to meet ALARA standards for radiation dose reduction. FINDINGS: There are mild diffuse atrophic changes. There were no extra-axial fluid collections. No intracranial hemorrhage. No intracranial mass or mass effect. No midline shift. The ventricles are normal in size and position. There are minimal chronic changes in deep white matter. Calvarial windows are unremarkable. IMPRESSION: Mild atrophic change with minimal chronic change in deep white matter. No acute intracranial finding. Dictated by: Dictated on workstation # [id number]
[2020-11-01] MEDS ORDERED: ADENOSINE 6 MG/2 ML (ADENOCARD) VIAL IV ONE ×2 (06:15)
[2020-11-01] MEDS ORDERED: METO-351 PO (06:43)
--- NOTE | 2020-11-01 06:45 | Diagnostic Imaging Report ---
INDICATION: Tachycardia and altered mental status. Frontal chest obtained at 12:33 a.m. compared with 08/11/2020. FINDINGS: Heart is borderline in size. There is no focal infiltrate or pneumothorax or pleural fluid. IMPRESSION: No acute process in the chest. Dictated by: Dictated on workstation # [id number]
--- NOTE | 2020-11-01 07:04 | Diagnostic Imaging Report ---
INDICATION: Altered mental status. AP pelvis obtained at 12:34 a.m. FINDINGS: No fracture or acute bony abnormality is seen. There is osteopenia. IMPRESSION: No acute abnormality in the bony pelvis. Dictated by: Dictated on workstation # [id number]
[2020-11-01 07:15] VITALS: BP 169/101
== END 2020-11-01 07:15 | disposition home or self-care (01) ==
LOC: ER 23:43 → EDUNIT# 11-01 01:10 → ER 11-01 07:15
DX: R41.82 Altered mental status, unspecified (principal); N28.9 Disorder of kidney and ureter, unspecified; R00.0 Tachycardia, unspecified; F03.90 Unspecified dementia, unspecified severity, without behavioral disturbance, psychotic disturbance, mood disturbance, and anxiety; R77.8 Other specified abnormalities of plasma proteins; I10 Essential (primary) hypertension; Z20.822 Contact with and (suspected) exposure to COVID-19; Z79.899 Other long term (current) drug therapy
CPT/HCPCS: 36415; 51702; 70450; 71045; 72170; 80053; 81000; 83605; 83735; 84443; 84484; 85025; 86141; 87040; 87636; 87804; 93005; 96374

== ENCOUNTER → 2020-11-07 | Outpatient (CLI) | payer MEDICARE ==
[~2020-11-07] MED LIST changes: +METO-351 PO
== END ==
LOC: CARD 11:28
PROVIDERS: ATTEND Internal Medicine Cardiovascular Disease
DX: I08.0 Rheumatic disorders of both mitral and aortic valves (principal); I47.1 Supraventricular tachycardia
CPT/HCPCS: 93306

== ENCOUNTER 2020-11-13 12:45 | Outpatient (RCR) | payer MEDICARE ==
--- NOTE | 2020-12-14 08:39 | 30 Day Event Recorder ---
30-DAY EVENT RECORDER 30-DAY EVENT RECORDER DATE OF PROCEDURE: 11/13/2020-12/12/2020. INDICATION: Supraventricular tachycardia. PROCEDURE: A 30-day event recorder was obtained for a total of 27 days and 17 hours. 30 rhythm strips were presented for review. The study quality is adequate. RESULTS: 1. Baseline sinus bradycardia with an average heart rate of 59 bpm, ranging from 46-120 bpm with occasional premature supraventricular complexes representing 3% of the total recording time and occasional premature ventricular complexes representing 1% of the total recording time. 2. There was no evidence of supraventricular tachycardia. 3. There were no pauses exceeding 2 seconds in duration. 4. No symptoms appear to have been reported during the test. IMPRESSION: 1. This is a 30-day event recorder that was obtained for total of 27 days and 17 hours. 2. Baseline sinus bradycardia with an average heart rate of 59 bpm, ranging from 46-120 bpm with occasional premature supraventricular complexes representing 3% of the total recording time and occasional premature ventricular complexes representing 1% of the total recording time. 3. There was no evidence of supraventricular tachycardia. 4. No symptoms appear to have been reported during the test. Certain portions of this document may have been dictated utilizing voice recognition technology. Inherent to this technology, typographical and grammatical errors may exist. As much as I am diligent to identify and correct these mistakes, some errors may remain in the document. CRISSY LUDWIG JR, MD Dec 14, 2020 08:39
== END 2021-02-08 | disposition home or self-care (01) ==
LOC: CARD 12:45
PROVIDERS: ATTEND Internal Medicine Cardiovascular Disease
DX: I47.1 Supraventricular tachycardia (principal)

== ENCOUNTER 2020-12-07 15:19 | Emergency (ER) | payer MEDICARE ==
[~2020-12-07] VITALS: Ht 157.5 cm; Wt 60.0 kg
[2020-12-07 15:20] VITALS: BP 197/84
--- NOTE | 2020-12-07 15:30 | ED Lower Extremity ---
General Stated Complaint: R HIP PAIN Source: EMS, caregiver Exam Limitations: no limitations History of Present Illness Date Seen by Provider: Dec 07, 2020 Time Seen by Provider: 15:29 Initial Comments This is an 85-year-old female who presented to the ER via [facility] with concerns for injury of her right hip. States that she was walking normally across the living room when all of a sudden there was a loud popping sound. Denies any fall, trauma. Allergies and Home Medications Allergies Coded Allergies: No Known Drug Allergies (Unverified , 11/02/13) Patient Home Medication List Home Medication List Reviewed: Yes Ciprofloxacin HCl (Ciprofloxacin HCl) 250 Mg Tablet, 250 MG PO BID Prescribed by: PRINCESS ALLEN on 08/13/20 1034 Donepezil HCl (Donepezil HCl) 10 Mg Tablet, 10 MG PO HS Prescribed by: PRINCESS ALLEN on 08/13/20 1036 Levothyroxine Sodium (Levothyroxine 50 Mcg Tab) 50 Mcg Tablet, 1 EACH PO DAILY, (Reported) Entered as Reported by: RONNA KAM on 11/02/13 0805 Lisinopril (Lisinopril) 20 Mg Tablet, 20 MG PO DAILY Prescribed by: PRINCESS ALLEN on 08/13/20 1036 Memantine HCl (Memantine HCl) 10 Mg Tablet, 10 MG PO BID Prescribed by: PRINCESS ALLEN on 08/13/20 1036 Metoprolol Succinate (Metoprolol Succinate) 25 Mg Tab.er.24h, 25 MG PO DAILY Prescribed by: PRINCESS ALLEN on 08/13/20 1034 Metoprolol Succinate (Toprol Xl) 25 Mg Tab.er.24h, 25 MG PO DAILY Prescribed by: ALIE GREGORY on 11/01/20 0643 Metronidazole (Flagyl) 500 Mg Tablet, 500 MG PO TID Prescribed by: PRINCESS ALLEN on 08/13/20 1034 Ondansetron (Ondansetron Odt) 8 Mg Tab.rapdis, 8 MG PO Q8H PRN for NAUSEA/VOMITING Prescribed by: DIANNA IGLESIAS on 10/09/18 1637 Pantoprazole Sodium (Protonix) 20 Mg Tablet.dr, 40 MG PO DAILY Prescribed by: TONYA MOHAN on 11/02/13 1056 Pravastatin Sodium (Pravachol) 20 Mg Tablet, 20 MG PO DAILY, (Reported) Entered as Reported by: RONNA KAM on 11/02/13 0805 Sucralfate (Carafate) 1 Gm Tab, 1 GM PO QID Prescribed by: TONYA MOHAN on 11/02/13 1056 Past Xilhkik-Fjnonr-Orgwwq Hx Immunizations Up To Date First/Initial COVID19 Vaccinat: Feb 2020 Second COVID19 Vaccination Ujan: Mar 2020 Third COVID19 Vaccination Date: Feb 2020 Past Medical History Surgery/Hospitalization HX: Pt was in this hospital on August 11 for gallbladder problems Surgeries: Yes (History of ERCP) Abdominal Respiratory: No Cardiac: Yes Hypertension Neurological: Yes Dementia Genitourinary: No Gastrointestinal: Yes Gall Bladder Disease Musculoskeletal: No Endocrine: Yes HEENT: No Cancer: No Psychosocial: No Integumentary: No Family Medical History Diabetes Physical Exam Vital Signs Vital Signs - First Documented 12/07/20 15:20 Temp 36.6 Pulse 60 Resp 18 B/P (MAP) 197/84 (121) Pulse Ox 98 O2 Delivery Room Air Capillary Refill : Height, Weight, BMI Height: 5'4.00" Weight: 155lbs. oz. [id number]; 22.00 BMI Method:Estimated Progress/Results/Core Measures Results/Orders My Orders Orders - TREVOR MUHAMMAD APRN Pelvis/Dean Hips 2 Views (12/07/20 15:24) Vital Signs/I&O 12/07/20 15:20 Temp 36.6 Pulse 60 Resp 18 B/P (MAP) 197/84 (121) Pulse Ox 98 O2 Delivery Room Air Departure Impression Primary Impression: Hip pain, right Disposition: 01 HOME, SELF-CARE Condition: Improved Departure-Patient Inst. Decision time for Depature: 17:08 Referrals: PRINCESS ALLEN MD (PCP/Family) Primary Care Physician Patient Instructions: Hip Pain Add. Discharge Instructions: Plan: 1. May take Tylenol as needed for pain per package. 2. Rest, ice 20 minutes at a time for pain or swelling. 3. Follow up with Dr. Allen for any persistent symptoms. 4. Return to ER for any new, concerning, or worsening symptoms. TREVOR MUHAMMAD APRN Dec 07, 2020 15:30
--- NOTE | 2020-12-07 16:30 | Diagnostic Imaging Report ---
INDICATION: Bilateral hip pain. COMPARISON: 11/01/2020. FINDINGS: AP view of the pelvis and two dedicated radiographic views of each hip were obtained. There is no fracture, dislocation, bone destruction, or radiopaque foreign body. The visualized pelvic osseous structures and the SI joints demonstrate no acute fracture or dislocation. There is no bone destruction or radiopaque foreign body. The surrounding soft tissue structures are unremarkable. IMPRESSION: 1. Unremarkable radiographic exam of the pelvis and bilateral hips. Dictated by: Dictated on workstation # [id number]
[2020-12-07] MEDS ORDERED: ACETAMINOPHEN 500 MG TAB (TYLENOL) PO ONE (17:15)
== END 2020-12-07 18:00 | disposition home or self-care (01) ==
LOC: EDUNIT# 15:19 → ER 15:20
DX: M25.551 Pain in right hip (principal); I10 Essential (primary) hypertension; F03.90 Unspecified dementia, unspecified severity, without behavioral disturbance, psychotic disturbance, mood disturbance, and anxiety; Z79.899 Other long term (current) drug therapy
CPT/HCPCS: 73521